=== PATIENT | male | born 1950 | race Caucasian/White ===

== ENCOUNTER 2018-02-05 08:04 | Outpatient (CLI) | payer OTHER ==
[2018-02-05 12:05] LABS: HGB - HEMOGLOBIN 14.9 g/dL (14.0-18.0); MEAN CORPUSCULAR HGB CONC 33.7 g/dL (32.0-36.0); MEAN CORPUSCULAR VOLUME 85.8 fL (80.0-94.0); MEAN PLATELET VOLUME 7.1 fL (7.4-11.4); RED BLOOD COUNT 5.16 10^6/uL (4.70-6.10); RED CELL DISTRIBUTION WIDTH 13.8 % (12.0-15.0); WHITE BLOOD COUNT 7.5 x10^3/uL (4.8-10.8)
[2018-02-05 12:07] LABS: ALBUMIN 4.2 g/dL (3.2-5.5); ALBUMIN/GLOBULIN RATIO 1.5 (1.0-2.2); ALKALINE PHOSPHATASE 58 IU/L (42-121); ALT ALANINE AMINOTRANSFERASE 33 IU/L (10-60); AST ASPARTATE AMINOTRANSFERASE 29 IU/L (10-42); BILIRUBIN,TOTAL 0.6 mg/dL (0.2-1.0); BUN - BLOOD UREA NITROGEN 20 mg/dL (6-20); CALCIUM 8.8 mg/dL (8.5-10.3); CARBON DIOXIDE - CO2 25 mmol/L (21-32); CHLORIDE 103 mmol/L (101-111); CHOL/HDL RATIO 5.3 (<5.0); CHOLESTEROL 184 mg/dL; CREATININE 1.1 mg/dL (0.6-1.2); GFR - MDRD 67 (>89); GLUCOSE 100 mg/dL (70-100); HDL CHOLESTEROL 35 mg/dL; LDL CHOLESTEROL,CALCULATED 117 mg/dL; LDL/HDL RATIO 3.3 (<3.6); SODIUM 137 mmol/L (135-145); VLDL CHOLESTEROL 32 mg/dL
[2018-02-06 14:52] LABS: HEPATITIS C ANTIBODY NON-REACTIVE (NON-REACTIVE)
== END 2018-02-05 08:05 | disposition home or self-care (01) ==
LOC: LAB.F 08:04
DX: I10 Essential (primary) hypertension (principal); E78.5 Hyperlipidemia, unspecified; Z11.59 Encounter for screening for other viral diseases
CPT/HCPCS: 36415; 80053; 80061; 83721; 85025; 86803

== ENCOUNTER 2021-02-18 13:41 | Outpatient (CLI) | payer OTHER ==
--- NOTE | 2021-02-18 14:18 | XRAY Report ---
PROCEDURE: Knee 3 View BILAT INDICATIONS: PAIN IN R KNEE, PAIN IN L KNEE TECHNIQUE: 3 views of the bilateral knee(s) were acquired. COMPARISON: None. FINDINGS: Bones: No fractures or dislocations. No suspicious bony lesions. Moderate bilateral medial femoral tibial compartment osteoarthritic changes are seen slightly worse. Mild bilateral patellofemoral com partment and lateral femoral tibial compartment osteoarthritic changes also seen. No patellar subluxa tion. Soft tissues: Moderate bilateral suprapatellar joint effusion is noted.. No suspicious soft tissue c alcifications. 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 Mild bilateral patellofemoral compartment and lateral femoral tibial compartment osteoarthritis. Reviewed by: Parker Borden MD on 02/18/2021 2:17 PM PDT Approved by: Parker Borden MD on 02/18/2021 2:17 PM PDT Station ID: [id number]
== END 2021-02-18 13:42 | disposition home or self-care (01) ==
LOC: DI 13:41
PROVIDERS: ATTEND Nurse Practitioner Family
DX: M25.561 Pain in right knee (principal); M25.562 Pain in left knee; M17.0 Bilateral primary osteoarthritis of knee

== ENCOUNTER 2023-01-25 15:59 | Outpatient (CLI) | payer OTHER | END 2023-01-25 23:59 | disposition short-term general hospital (02) | LOC: EMS 15:59 | DX: R47.81 Slurred speech (principal); R41.89 Other symptoms and signs involving cognitive functions and awareness | CPT/HCPCS: A0425; A0429 ==

== ENCOUNTER 2023-07-21 07:35 | Outpatient (CLI) | payer OTHER ==
[2023-07-21 07:48] LABS: BASOPHILS % (AUTO) 0.3 %; HGB - HEMOGLOBIN 13.9 g/dL (14.0-18.0); LYMPHOCYTES % (AUTO) 12.2 %; MEAN CORPUSCULAR HEMOGLOBIN 30.3 pg (27.0-31.0); MEAN CORPUSCULAR HGB CONC 33.9 g/dL (32.0-36.0); MEAN CORPUSCULAR VOLUME 89.5 fL (80.0-94.0); MEAN PLATELET VOLUME 8.3 fL (7.4-11.4); MONOCYTES % (AUTO) 9.9 %; PLT - PLATELET COUNT 139 10^3/uL (130-450); RED BLOOD COUNT 4.58 10^6/uL (4.70-6.10); RED CELL DISTRIBUTION WIDTH 15.7 % (12.0-15.0); WHITE BLOOD COUNT 9.7 x10^3/uL (4.8-10.8)
[2023-07-21 08:21] LABS: ABNORMAL LYMPHS % (MANUAL) 0 %
[2023-07-21 08:25] LABS: BAND NEUTROPHILS % (MANUAL) 4 %; DIFFERENTIAL COMMENT MANUAL DIFFERENTIAL; LYMPHOCYTES # (MANUAL) 1.2 10^3/uL (1.5-3.5); LYMPHOCYTES % (MANUAL) 5 %; METAMYELOCYTES % (MANUAL) 2 %; MONOCYTES # (MANUAL) 1.4 10^3/uL (0.0-1.0); MYELOCYTES % (MANUAL) 7 %; NEUTROPHILS # (MANUAL) 6.3 10^3/uL (1.5-6.6); NUCLEATED RBC (MANUAL) 1 %; REACTIVE LYMPHS % (MANUAL) 7 %
== END 2023-07-21 07:36 | disposition home or self-care (01) ==
LOC: LAB 07:35
PROVIDERS: ATTEND Internal Medicine Hematology & Oncology
DX: C71.9 Malignant neoplasm of brain, unspecified (principal)
CPT/HCPCS: 36415; 85025

== ENCOUNTER 2023-08-31 08:37 | Day surgery (SDC) | payer OTHER ==
[~2023-08-31 08:37] MED LIST: BUPIVACAINE 0.25% PF 30 ML VIAL ONE; LIDOCAINE 1%-EPI 1:100000 20 ML MDV ONE; PROPOFOL 500 MG/50 ML 0 MG/0 ML VIAL ONE; ceFAZolin 2 GM VIAL ONE
[2023-08-31] MEDS ORDERED: LACTATED RINGERS 1,000 ML IV ONE (08:55)
[2023-08-31 09:10] LABS: BASOPHILS % (AUTO) 1.1 %; EOSINOPHILS % (AUTO) 0.4 %; HCT - HEMATOCRIT 39.1 % (42.0-52.0); HGB - HEMOGLOBIN 13.7 g/dL (14.0-18.0); LYMPHOCYTES % (AUTO) 22.2 %; MEAN CORPUSCULAR HEMOGLOBIN 31.1 pg (27.0-31.0); MEAN CORPUSCULAR VOLUME 88.7 fL (80.0-94.0); MEAN PLATELET VOLUME 9.3 fL (7.4-11.4); MONOCYTES % (AUTO) 3.6 %; NEUTROPHILS % (AUTO) 66.2 %; PLT - PLATELET COUNT 46 10^3/uL (130-450); RED BLOOD COUNT 4.41 10^6/uL (4.70-6.10); RED CELL DISTRIBUTION WIDTH 17.7 % (12.0-15.0); WHITE BLOOD COUNT 2.8 x10^3/uL (4.8-10.8)
[2023-08-31 09:13] VITALS: BP 106/82; O2SAT 85
[2023-08-31 09:18] LABS: ABNORMAL LYMPHS % (MANUAL) 0 %
[2023-08-31 09:29] LABS: ALBUMIN 3.2 g/dL (3.2-5.5); BILIRUBIN,TOTAL 0.9 mg/dL (0.2-1.0); CALCIUM 8.6 mg/dL (8.5-10.3); CREATININE 0.7 mg/dL (0.6-1.3); POTASSIUM 3.8 mmol/L (3.5-4.5); TOTAL PROTEIN 6.4 g/dL (6.4-8.9)
[2023-08-31 10:18] LABS: BAND NEUTROPHILS % (MANUAL) 27 %; LYMPHOCYTES # (MANUAL) 0.6 10^3/uL (1.5-3.5); LYMPHOCYTES % (MANUAL) 13 %; METAMYELOCYTES % (MANUAL) 3 %; MONOCYTES # (MANUAL) 0.1 10^3/uL (0.0-1.0); MYELOCYTES % (MANUAL) 3 %; NUCLEATED RBC (MANUAL) 4 %; REACTIVE LYMPHS % (MANUAL) 7 %
[2023-08-31 10:23] LABS: DIFFERENTIAL COMMENT MANUAL DIFFERENTIAL
== END 2023-08-31 08:38 | disposition home or self-care (01) ==
LOC: SDS 08:37
PROVIDERS: ATTEND Surgery
DX: C71.9 Malignant neoplasm of brain, unspecified (principal); R53.1 Weakness; R00.0 Tachycardia, unspecified; Z53.09 Procedure and treatment not carried out because of other contraindication
CPT/HCPCS: 36415; 80053; 85025; 93005

== ENCOUNTER 2023-08-31 09:22 | Inpatient (IN) | payer OTHER ==
[2023-08-31] MEDS ORDERED: SODIUM CHLORIDE 0.9% 1,000 ML IV STA ×2 (09:48→12:11)
[2023-08-31 10:10] LABS: BASOPHILS % (AUTO) 0.4 %; EOSINOPHILS % (AUTO) 0.4 %; HCT - HEMATOCRIT 36.7 % (42.0-52.0); HGB - HEMOGLOBIN 12.9 g/dL (14.0-18.0); MEAN CORPUSCULAR HEMOGLOBIN 31.1 pg (27.0-31.0); MEAN CORPUSCULAR HGB CONC 35.1 g/dL (32.0-36.0); MEAN CORPUSCULAR VOLUME 88.4 fL (80.0-94.0); MEAN PLATELET VOLUME 8.9 fL (7.4-11.4); MONOCYTES % (AUTO) 4.1 %; NEUTROPHILS % (AUTO) 70.6 %; PLT - PLATELET COUNT 43 10^3/uL (130-450); RED BLOOD COUNT 4.15 10^6/uL (4.70-6.10); RED CELL DISTRIBUTION WIDTH 17.9 % (12.0-15.0); WHITE BLOOD COUNT 2.5 x10^3/uL (4.8-10.8)
--- NOTE | 2023-08-31 10:16 | XRAY Report ---
PROCEDURE: Chest 1 View X-Ray INDICATIONS: SOA/hypoxia/brain cancer TECHNIQUE: One view of the chest was acquired. COMPARISON: None. FINDINGS: Surgical changes and devices: None. Lungs and pleura: No pleural effusions or pneumothorax. Lungs are clear. Mediastinum: Mediastinal contours appear normal. Heart size is normal. Bones and chest wall: No suspicious bony lesions. Overlying soft tissues appear unremarkable. IMPRESSION: No acute cardiopulmonary process. Reviewed by: Avel Craven MD on 08/31/2023 10:15 AM PDT Approved by: Avel Craven MD on 08/31/2023 10:15 AM PDT Station ID: [id number]
[2023-08-31 10:23] LABS: ABNORMAL LYMPHS % (MANUAL) 0 %
[2023-08-31 10:27] LABS: BAND NEUTROPHILS % (MANUAL) 27 %; LYMPHOCYTES # (MANUAL) 0.5 10^3/uL (1.5-3.5); LYMPHOCYTES % (MANUAL) 13 %; METAMYELOCYTES % (MANUAL) 3 %; MONOCYTES # (MANUAL) 0.1 10^3/uL (0.0-1.0); MYELOCYTES % (MANUAL) 3 %; NEUTROPHILS # (MANUAL) 1.8 10^3/uL (1.5-6.6); NUCLEATED RBC (MANUAL) 4 %; REACTIVE LYMPHS % (MANUAL) 7 %
[2023-08-31 10:28] LABS: DIFFERENTIAL COMMENT MANUAL DIFFERENTIAL
[2023-08-31 10:30] LABS: BILIRUBIN,TOTAL 0.8 mg/dL (0.2-1.0); CALCIUM 8.4 mg/dL (8.5-10.3); CREATININE 0.7 mg/dL (0.6-1.3); INR 1.2 (0.8-1.2); POTASSIUM 3.6 mmol/L (3.5-4.5); PT - PROTHROMBIN TIME 13.4 secs (9.9-12.6)
[2023-08-31 11:25] LABS: B. PARAPERTUSSIS- RESP PCR PAN NOT DETECTED; B. PERTUSSIS- RESP PCR PANEL NOT DETECTED; C. PNEUMONIAE- RESP PCR PANEL NOT DETECTED; CORONAVIRUS 229E-RESP PCR NOT DETECTED; CORONAVIRUS HKU1-RESP PCR NOT DETECTED; CORONAVIRUS NL63-RESP PCR NOT DETECTED; CORONAVIRUS OC43-RESP PCR NOT DETECTED; HUMAN METAPNEUMOVIRUS NOT DETECTED; INFLUENZA A- RESP PCR PANEL NOT DETECTED; INFLUENZA B - RESP PCR PANEL NOT DETECTED; M. PNEUMONIAE- RESP PCR PANEL NOT DETECTED; PARAINFLUENZA VIRUS 1 NOT DETECTED; PARAINFLUENZA VIRUS 2 NOT DETECTED; PARAINFLUENZA VIRUS 3 NOT DETECTED; PARAINFLUENZA VIRUS 4 NOT DETECTED; RHINOVIRUS/ENTEROVIRUS NOT DETECTED; RSV- RESP PCR PANEL NOT DETECTED; SARS-CoV-2 -RESP PCR PANEL NOT DETECTED
[2023-08-31] MEDS ORDERED: iohexoL-300 100 ML VIAL IVP ONE (11:29)
--- NOTE | 2023-08-31 12:24 | ED Physician Documentation ---
History of Present Illness - Stated complaint Stated Complaint: WEAKNES - Chief complaint Chief Complaint: General - History obtained from History obtained from: Patient - Additonal information Additional information: Patient is a 73-year-old male with a history of glioblastoma presenting for evaluation of abnormal vital signs noticed in and when he arrived to the preop area he was noted to be tachycardic and hypoxic. Patient states that he has been feeling generalized weakness for the past 1 week. Denies fever, chest pain, shortness of air, cough off, vomit or diarrhea. He is currently on oral chemotherapy medications for treatment of his cancer and his oncologist is Dr. Herrera. Review of Systems Constitutional: denies: Fever Cardiac: denies: Chest pain / pressure Respiratory: denies: Dyspnea, Cough GI: denies: Abdominal Pain Neurologic: reports: Generalized weakness PD PAST MEDICAL HISTORY - Past Medical History Past Medical History: Yes Cardiovascular: High cholesterol - Past Surgical History Past Surgical History: Yes General: Hiatal hernia repair Neuro: Craniotomy - Present Medications Home Medications: Ambulatory Orders Medication Instructions Recorded Confirmed Ondansetron HCl 4 mg PO Q4HR PRN 04/10/23 08/31/23 Temozolomide 360 mg PO DAILY 08/07/23 08/31/23 Atorvastatin Calcium [Lipitor] 80 mg PO DAILY 08/28/23 08/31/23 Escitalopram [Lexapro] 10 mg PO DAILY 08/28/23 08/31/23 dexAMETHasone [Decadron] 4 mg PO BIDWM 08/28/23 08/31/23 - Allergies Allergies/Adverse Reactions: Allergies Allergy/AdvReac Type Severity Reaction Status Date / Time No Known Drug Allergies Allergy Verified 08/31/23 09:37 - Social History Does the pt smoke?: No Smoking Status: Never smoker Does the pt drink ETOH?: No Does the pt have substance abuse?: No - Immunizations Immunizations are current?: Yes PD ED PE NORMAL - General General: Alert and oriented X 3, No acute distress, Well developed/nourished - HEENT HEENT: Atraumatic - Neck Neck: Supple, no meningeal sign - Cardiac Cardiac: Strong equal pulses, Other (Tachycardic, regular rhythm) - Respiratory Respiratory: No respiratory distress, Clear bilaterally - Abdomen Abdomen: Soft, Non tender, Non distended - Derm Derm: Warm and dry - Extremities Extremities: No edema, No calf tenderness / cord - Neuro Neuro: Alert and oriented X 3, Normal speech Results - Vitals Vitals: Vital Signs - 24 hr 08/31/23 08/31/23 08/31/23 09:33 10:07 10:30 Temperature 37.6 C Heart Rate 139 H 115 H Respiratory 18 23 Rate Blood Pressure 106/80 99/80 110/88 H O2 Saturation 95 93 If not protocol 2 : Oxygen Flow, liters/minute 08/31/23 08/31/23 08/31/23 11:30 11:34 12:00 Temperature Heart Rate 107 H Respiratory 18 Rate Blood Pressure 97/71 O2 Saturation 89 L 94 93 If not protocol 2 2 : Oxygen Flow, liters/minute Oxygen O2 Source Nasal cannula Oxygen Flow Rate 2 - EKG (time done) 0910 EKG releavant findings:: EKG personally interpreted by author of this note. Relevant findings are: Rate 126, sinus tachycardia, right bundle branch block, no STEMI 1011 EKG releavant findings:: EKG personally interpreted by author of this note. Relevant findings are: Rate 122, sinus tachycardia, right bundle branch block, no STEMI - Labs Labs: Laboratory Tests 08/31/23 08/31/23 08/31/23 09:01 09:58 09:58 WBC 2.5 L RBC 4.15 L Hgb 12.9 L Hct 36.7 L MCV 88.4 MCH 31.1 H MCHC 35.1 RDW 17.9 H Plt Count 43 L MPV 8.9 Neut # (Auto) Not Reportable Lymph # (Auto) Not Reportable [place] # (Auto) Not Reportable Eos # (Auto) Not Reportable Baso # (Auto) Not Reportable Absolute Nucleated RBC Not Reportable Total Counted 100 Band Neuts % (Manual) 27 H Reactive Lymphs % (Man) 7 Abnorm Lymph % (Manual) 0 Metamyelocytes % 3 H Myelocytes % 3 H Nucleated RBC % Not Reportable Neutrophils # (Manual) 1.8 Lymphocytes # (Manual) 0.5 L Monocytes # (Manual) 0.1 Eosinophils # (Manual) 0.0 Basophils # (Manual) 0.0 Nucleated RBCs 4 Differential Comment MANUAL DIFFERENTIAL WBC Morphology 2+ DOHLE BODIES RBC Morph Micro Appear 1+ ANISOCYTOSIS PT 13.4 H INR 1.2 Sodium Potassium Chloride Carbon Dioxide Anion Gap BUN Creatinine Estimated GFR (MDRD) Glucose Lactic Acid Calcium Total Bilirubin AST ALT Alkaline Phosphatase Lactate Dehydrogenase 379 H Troponin I High Sens B-Natriuretic Peptide Total Protein Albumin Globulin Albumin/Globulin Ratio Lipase Nasal Adenovirus (PCR) Nasal B. parapertussis DNA (PCR) Nasal Coronavir 229E PCR Nasal Coronavir HKU1 PCR Nasal Coronavir NL63 PCR Nasal Coronavir OC43 PCR Nasal Enterovir/Rhinovir PCR Nasal Influenza B PCR Nasal Influenza A PCR Nasal Parainfluen 1 PCR Nasal Parainfluen 2 PCR Nasal Parainfluen 3 PCR Nasal Parainfluen 4 PCR Nasal RSV (PCR) Nasal B.pertussis DNA PCR Nasal C.pneumoniae (PCR) [place] Human Metapneumo PCR Nasal M.pneumoniae (PCR) Nasal SARS-CoV-2 (PCR) 08/31/23 08/31/23 08/31/23 09:58 09:58 09:58 WBC RBC Hgb Hct MCV MCH MCHC RDW Plt Count MPV Neut # (Auto) Lymph # (Auto) [place] # (Auto) Eos # (Auto) Baso # (Auto) Absolute Nucleated RBC Total Counted Band Neuts % (Manual) Reactive Lymphs % (Man) Abnorm Lymph % (Manual) Metamyelocytes % Myelocytes % Nucleated RBC % Neutrophils # (Manual) Lymphocytes # (Manual) Monocytes # (Manual) Eosinophils # (Manual) Basophils # (Manual) Nucleated RBCs Differential Comment WBC Morphology RBC Morph Micro Appear PT INR Sodium 138 Potassium 3.6 Chloride 102 Carbon Dioxide 24 Anion Gap 12.0 BUN 28 H Creatinine 0.7 Estimated GFR (MDRD) 111 Glucose 169 H Lactic Acid Calcium 8.4 L Total Bilirubin 0.8 AST 37 ALT 68 H Alkaline Phosphatase 106 Lactate Dehydrogenase Troponin I High Sens 28.7 H* B-Natriuretic Peptide 100 Total Protein 6.0 L Albumin 3.0 L Globulin 3.0 Albumin/Globulin Ratio 1.0 Lipase 53 Nasal Adenovirus (PCR) Nasal B. parapertussis DNA (PCR) Nasal Coronavir 229E PCR Nasal Coronavir HKU1 PCR Nasal Coronavir NL63 PCR Nasal Coronavir OC43 PCR Nasal Enterovir/Rhinovir PCR Nasal Influenza B PCR Nasal Influenza A PCR Nasal Parainfluen 1 PCR Nasal Parainfluen 2 PCR Nasal Parainfluen 3 PCR Nasal Parainfluen 4 PCR Nasal RSV (PCR) Nasal B.pertussis DNA PCR Nasal C.pneumoniae (PCR) [place] Human Metapneumo PCR Nasal M.pneumoniae (PCR) Nasal SARS-CoV-2 (PCR) 08/31/23 08/31/23 09:58 10:08 WBC RBC Hgb Hct MCV MCH MCHC RDW Plt Count MPV Neut # (Auto) Lymph # (Auto) [place] # (Auto) Eos # (Auto) Baso # (Auto) Absolute Nucleated RBC Total Counted Band Neuts % (Manual) Reactive Lymphs % (Man) Abnorm Lymph % (Manual) Metamyelocytes % Myelocytes % Nucleated RBC % Neutrophils # (Manual) Lymphocytes # (Manual) Monocytes # (Manual) Eosinophils # (Manual) Basophils # (Manual) Nucleated RBCs Differential Comment WBC Morphology RBC Morph Micro Appear PT INR Sodium Potassium Chloride Carbon Dioxide Anion Gap BUN Creatinine Estimated GFR (MDRD) Glucose Lactic Acid 2.8 H Calcium Total Bilirubin AST ALT Alkaline Phosphatase Lactate Dehydrogenase Troponin I High Sens B-Natriuretic Peptide Total Protein Albumin Globulin Albumin/Globulin Ratio Lipase Nasal Adenovirus (PCR) NOT DETECTED Nasal B. parapertussis DNA (PCR) NOT DETECTED Nasal Coronavir 229E PCR NOT DETECTED Nasal Coronavir HKU1 PCR NOT DETECTED Nasal Coronavir NL63 PCR NOT DETECTED Nasal Coronavir OC43 PCR NOT DETECTED Nasal Enterovir/Rhinovir PCR NOT DETECTED Nasal Influenza B PCR NOT DETECTED Nasal Influenza A PCR NOT DETECTED Nasal Parainfluen 1 PCR NOT DETECTED Nasal Parainfluen 2 PCR NOT DETECTED Nasal Parainfluen 3 PCR NOT DETECTED Nasal Parainfluen 4 PCR NOT DETECTED Nasal RSV (PCR) NOT DETECTED Nasal B.pertussis DNA PCR NOT DETECTED Nasal C.pneumoniae (PCR) NOT DETECTED [place] Human Metapneumo PCR NOT DETECTED Nasal M.pneumoniae (PCR) NOT DETECTED Nasal SARS-CoV-2 (PCR) NOT DETECTED PD Medical Decision Making - ED course Complexity details: reviewed results, re-evaluated patient, d/w patient, d/w family ED course: Patient is a 73-year-old male with a history of glioblastoma presenting for evaluation of tachycardia and hypoxia noted at outpatient surgery this morning where he was scheduled to get a port placed. Patient reports generalized weakness for the past 1 week but otherwise denies chest pain, shortness of air, URI symptoms. Nonfocal neuro exam. He is tachycardic and hypoxic on room air. He EKG demonstrates sinus tachycardia. CBC, chemistries, chest x-ray and respiratory swab were initially ordered and reviewed. Patient was also given IV fluids. Lactic is elevated at 2.8. Patient is pancytopenic. High sensitive troponin is mildly elevated at 16 which I suspect is likely related to demand from tachycardia and hypoxia. No chest pain to suggest this is ACS. No pneumonia or consolidation seen on chest x-rays so a CT angio was obtained to evaluate further causes of his symptoms. It is negative for pulmonary embolism.There is a right upper lobe consolidation as well as centrilobular nodules suggestive of bronchiolitis. Suspect infectious etiology and will start patient on IV antibiotics. Reviewed CT results with patient. Presented the case to the admitting hospitalist who will admit for further management. 1230 - Discussed with admitting hospitalist, Dr. Joe. IMPRESSION: Evaluation is mildly limited secondary to respiratory motion artifact, notably in the bilateral lower lobes. 1. No pulmonary embolism to the level of the proximal subsegmental pulmonary arteries, accounting for motion. 2. Right upper lobe nodular consolidation measuring 1.7 x 1.1 cm containing punctate foci of air. Differential includes infection/abscess versus malignancy. Consider short interval follow-up in 6 weeks. 3. Centrilobular nodules in the right upper lobe suggestive of bronchiolitis of infectious or inflammatory etiology. 4. Hypoattenuating lesion in the left hepatic lobe measuring 1.1 cm is indeterminate. A CT or MRI (liver mass protocol) can be performed for further evaluation, clinical di scretion. Departure - Departure Disposition: 66 [facility] DC/Xfer Clinical Impression: Acute hypoxic respiratory failure, CAP (community acquired pneumonia), Immunocompromised, Pancytopenia Condition: Fair Discharge Date/Time: 08/31/23 14:00
--- NOTE | 2023-08-31 12:33 | CT Report ---
PROCEDURE: ANGIO CHEST W/WO INDICATIONS: SOA/hypoxic/brain cancer CONTRAST: 80ml Omni 300 TECHNIQUE: After the administration of intravenous contrast, 2 mm axial images were acquired from the pulmonary apices to the posterior costophrenic angles during the arterial phase. In addition, 1 mm lung kernel and 5 mm soft tissue kernel reconstructions were performed. 3-dimensional coronal oblique maximum int ensity projection (MIP) reformats, 8 mm axial MIP, and 5 mm coronal and sagittal MPR reformats were t hen performed through the thorax. For radiation dose reduction, the following was used: automated exp osure control, adjustment of mA and/or kV according to patient size. COMPARISON: Chest radiograph on August 31, 2023 FINDINGS: Image quality: Adequate. Good enhancement of the pulmonary artery. Evaluation is limited secondary to respiratory motion artifact, notably in the bilateral lower lobes. Large vessels: No filling defects within the opacified pulmonary arteries to the level of the proxima l subsegmental pulmonary arteries, accounting for motion and contrast timing. No evidence of acute ao rtic syndrome or aortic aneurysm. Mild calcification of the thoracic aorta. Ascending aorta measures 3.5 cm. Main pulmonary artery is normal in caliber. Lungs and pleura: Right upper lobe nodular consolidation measuring 1.7 x 1.1 cm containing punctate f oci of air (4/122-131). Centrilobular nodules in the right upper lobe (4/101-1:15, 148). Subcentimete r calcified granuloma in the middle lobe. Dependent atelectasis. Moderate apical predominant centrilo bular paraseptal edema. No pleural effusions. No pneumothorax. Mediastinum: Heart size is normal. No pericardial effusion. No mediastinal adenopathy by size criteri a. Chest wall and lower neck: Thyroid is unremarkable. No axillary or supraclavicular adenopathy by size . Bones: No aggressive osseous abnormality. No acute fracture. Mild multilevel degenerative changes of the spine. Upper Abdomen: Hypoattenuating lesion in the left hepatic lobe measuring 1.1 cm is indeterminate (01/18 30). Additional subcentimeter lesion in the right hepatic lobe measuring 0.5 cm is too small to oralia cterize (re-/1:30). Calcified granulomas in the spleen. Simple cysts in the right upper pole.. IMPRESSION: Evaluation is mildly limited secondary to respiratory motion artifact, notably in the bilateral lower lobes. 1. No pulmonary embolism to the level of the proximal subsegmental pulmonary arteries, accounting for motion. 2. Right upper lobe nodular consolidation measuring 1.7 x 1.1 cm containing punctate foci of air. Dif ferential includes infection/abscess versus malignancy. Consider short interval follow-up in 6 weeks. 3. Centrilobular nodules in the right upper lobe suggestive of bronchiolitis of infectious or inflamm atory etiology. 4. Hypoattenuating lesion in the left hepatic lobe measuring 1.1 cm is indeterminate. A CT or MRI ( kassidy mass protocol) can be performed for further evaluation, clinical discretion. Reviewed by: Manuel Hale MD on 08/31/2023 12:32 PM PDT Approved by: Manuel Hale MD on 08/31/2023 12:32 PM PDT Station ID: [id number]
[2023-08-31] MEDS ORDERED: AZITHROMYCIN INJ 500 MG in SODIUM CHLORIDE 0.9% 250 ML IV STA (12:37)
[2023-08-31] MEDS ORDERED: cefTRIAXone 1 GM in SODIUM CHLORIDE 0.9% MINIBAG 100 ML IV STA (12:37)
[2023-08-31] MEDS ORDERED: ONDANSETRON ODT 4 MG TABLET TL PRN (12:52)
[2023-08-31] MEDS ORDERED: SODIUM CHLORIDE FLUSH 0.9% 10 ML SYRINGE IVP PRN (12:52)
[2023-08-31] MEDS ORDERED: ACETAMINOPHEN 325 MG TABLET PO PRN (12:52)
[2023-08-31] MEDS ORDERED: oxyCODONE 5 MG TABLET PO PRN (12:52)
[2023-08-31] MEDS ORDERED: ONDANSETRON 4 MG/2 ML VIAL IVP PRN (12:52)
[2023-08-31] MEDS ORDERED: SODIUM CHLORIDE 0.9% 1,000 ML IV SCH (13:00)
--- NOTE | 2023-08-31 13:41 | PHARMACY PROGRESS NOTE ---
- Best Possible Medication History Admit Date and Time: 08/31/23 1252 Processed by: Nursing As the person ultimately responsible for medication therapy, providers are able to order a medication from an existing home medication list in [facility] via the "Reconcile Routine" prior to Confirmation of that medication by decision support manager. Such practice is discouraged except when the physician, in their clinical judgment, deems that a medical need exists for a medication without regard to previous use.
[2023-08-31] MEDS: ENOXAPARIN 40 MG/0.4 ML SYRINGE SUBQ SCH (13:57)
[2023-08-31] MEDS ORDERED: VANCOMYCIN INJ 1 GM in SODIUM CHLORIDE 0.9% 250 ML IV SCH (14:00)
--- NOTE | 2023-08-31 15:59 | HISTORY & PHYSICAL EXAMINATION ---
Chief Complaint - Chief Complaint Chief Complaint: Pneumonia History of Present Illness - Admitted From Admitted From:: ED - History Obtained From Records Reviewed: EMR History obtained from: Patient Exam Limitations: None - History of Present Illness HPI Comment/Other: Patient is a 73-year-old male with a history of glioblastoma that he was diagnosed with in January 2023 presenting for evaluation of abnormal vital signs n oticed when he arrived to the preop area he was noted to be tachycardic and hypoxic. Patient states that he has been feeling generalized weakness for the past 1 week. Denies fever, chest pain, shortness of air, cough off, vomit or diarrhea. He is currently on oral chemotherapy medications for treatment of his cancer and his oncologist is Dr. Bhavesh Holm. History - Past Medical History Cardiovascular: reports: High cholesterol Respiratory: reports: None Neuro: reports: None Endocrine/Autoimmune: reports: None GI: reports: None CRYOGENICS REPAIRER: reports: None : reports: None HEENT: reports: None Psych: reports: None Musculoskeletal: reports: None Derm: reports: None Other Past Medical History: Pt has a Glioblastoma that he was diagnosed with in January of 2023. When asked about any other past medical history he states that he "can not remember anything" - Past Surgical History General: reports: Hiatal hernia repair Neuro: reports: Craniotomy - Family & Social History Family History: Mother: , Cancer (Mom from cervical cancer and Dad from Brain cancer he thinks), Father: , Cancer Living arrangement: At home Living Situation: With family Social History Notes: He currently lives at home with his and Daughter who has downs syndrome - Substance History Use: Uses substance without health or social issues: Tobacco (Use to smoke a pack a day starting at the age of 20, he would quit and then start again before finally quitting for good at the age of 50. ), Alcohol (Use to drink but quit around the same time that he quit smoking ) - POLST Patient has POLST: Yes POLST Status: DNR Meds/Allgy - Home Medications Home Medications: Ambulatory Orders Medication Instructions Recorded Confirmed Ondansetron HCl 4 mg PO Q4HR PRN 04/10/23 08/31/23 Temozolomide 360 mg PO DAILY 08/07/23 08/31/23 Atorvastatin Calcium [Lipitor] 80 mg PO DAILY 08/28/23 08/31/23 Escitalopram [Lexapro] 10 mg PO DAILY 08/28/23 08/31/23 dexAMETHasone [Decadron] 4 mg PO BIDWM 08/28/23 08/31/23 - Allergies Allergies/Adverse Reactions: Allergies Allergy/AdvReac Type Severity Reaction Status Date / Time No Known Drug Allergies Allergy Verified 08/31/23 09:37 Review of Systems - Constitutional Constitutional: reports: Fatigue, Weakness. denies: Fever, Chills - Eyes Eyes: denies: Blurred vision, Vision loss - Ears, Nose & Throat Ears, Nose & Throat: denies: Hearing loss, Vertigo, Sore throat - Cardiovascular Cariovascular: denies: Irregular heart rate, Palpitations, Chest pain - Respiratory Respiratory: denies: Cough, SOB at rest, SOB with exertion - Gastrointestinal Gastrointestinal: denies: Abdominal pain, Constipation, Diarrhea, Change in bowel habits - Genitourinary Genitourinary: denies: Dysuria, Frequency, Urgency - Musculoskeletal Musculoskeletal: denies: Muscle pain, Back pain - Integumentary Integumentary: denies: Rash, Dryness - Neurological Neurological: reports: General weakness. denies: Headache, Dizziness - Psychiatric Psychiatric: denies: Suicidal, Homicidal - Endocrine Endocrine: denies: Polyuria, Polydypsia - Hematologic/Lymphatic Hematologic/Lymphatic: denies: Bruising Prior Level of Functionality: Pt is able to dress, bath, cook and eat food on his own. He has noticed that he has some difficulty walking lately due to increasing weakness. He currently lives with his and daughter who has down syndrome. Exam - Vital Signs Reviewed Vital Signs: Yes Vital Signs: Vital Signs x48h Temp Pulse Pulse Resp BP BP Pulse Ox 08/31/23 15:45 08/31/23 13:57 36.3 C L 87 18 129/73 96 08/31/23 13:00 37.4 C 100 22 115/90 H 92 08/31/23 12:00 107 H 18 97/71 93 08/31/23 11:34 94 08/31/23 11:30 89 L 08/31/23 10:30 110/88 H 08/31/23 10:07 115 H 23 99/80 93 08/31/23 09:33 37.6 C 139 H 18 106/80 95 O2 Flow Rate 08/31/23 15:45 4 08/31/23 13:57 4 08/31/23 13:00 2 08/31/23 12:00 2 08/31/23 11:34 2 08/31/23 11:30 08/31/23 10:30 08/31/23 10:07 2 08/31/23 09:33 - Physical Exam General Appearance: positive: No acute distress, Lethargic Eyes Bilateral: positive: PERRL, EOMI ENT: positive: ENT inspection nml Neck: positive: Nml inspection Respiratory: positive: Chest non-tender, No respiratory distress, Breath sounds nml Cardiovascular: positive: Regular rate & rhythm Peripheral Pulses: positive: 2+ (Both radial and Pedial) Abdomen: positive: Nml bowel sounds, Tenderness (Tender to palpation in the LLQ) Skin: positive: Color nml, No rash, Dry, Other (Pt skin is a little cold, he is currently laying in a cold room under some blankets.) Extremities: positive: Non-tender, No pedal edema Neurologic/Psychiatric: positive: Oriented x3, Other (Slow speech and forgetful about certain things) Sepsis Event Note (H) - Evaluation Current Stage of Sepsis: Ruled out Conclusion/Plan - Problem List (1) Pneumonia Conclusion/Plan: Pt came in to the ED from preop when he was about to get a port put in for chemo for his Glioblastoma treatment when he had abnormal vitals consistent of tachycardia and hypoxic. He got an X-ray which came back with no acute findings, see report for full details, and he got a CT of the chest which shows no PE, but a right upper lobe nodular consolidation measuring 1.7 x 1.1 cm containing punctate fuci of air. Differential includes infection/abscess versus malignancy, centrilobular nodules in the right upper lobe suggestive of bronchiolitis of infectious or inflammatory etiology. See CT report for full review. Due to the patients current diagnosis of a Glioblastoma he is taking Avastin and Temozolomide and going through chemoradiation causeing him to be immunocompromized. As such this finding on the CT could be a verity of different Pneumonias, one of which could be Pneumocystis jirovecii pneumonia (PCP) due to him taking Temozolomide making him more susceptible to it. An infectious disease doctor was consulted on what kind of work up should happen to more specifically direct treatment. The goal for this patient is to find out what pneumonia he has so that it can be directly treated. Plan: Wait for lab work to return so as to better direct antibiotic treatment Start Azithromycin 500 mg Start Cefepime 1 gm Vancomycin HCl 500 mg (2) Glioblastoma Conclusion/Plan: Pt was diagnosed with Glioblastoma January of 2023, he has had surgical resection for it, and is currently taking Avastin and Temozolomide along with chemoradiation. Pt states that his current oncologist is Dr. Bhavesh Holm, his doctor will be contacted and informed about his Mr. Carrero current hospitalization. Plan: Continue to monitor patient and make sure he is comfortable. (3) Pancytopenia Conclusion/Plan: Pt had blood work come back with WBC count of 2.5, RBC count of 4.15 and Platelet count of 43. This is due to the treatment he is receiving for his Glioblastoma. Plan: Monitor patient. - Lab Results Fish Bones: 08/31/23 09:58 08/31/23 09:58 Core Measures - Anticipated LOS I expect patient to be DC'd or transferred within 96 hours.: Yes - DVT/VTE - Prophylaxis VTE/DVT Device ordered at admit?: Yes VTE/DVT Prophylaxis med ordered at admit?: Yes
[2023-08-31] MEDS: CEFEPIME 1 GM in SODIUM CHLORIDE 0.9% MINIBAG 100 ML IV SCH ×2 (16:13→22:29)
[2023-08-31] MEDS: SODIUM CHLORIDE FLUSH 0.9% 10 ML SYRINGE IVP SCH (16:13)
[2023-08-31] MEDS: VANCOMYCIN INJ 1 GM, VANCOMYCIN INJ 500 MG in SODIUM CHLORIDE 0.9% 500 ML IV SCH (16:50)
--- NOTE | 2023-08-31 18:03 | ADVANCE CARE PLANNING NOTE ---
Advance Care Planning - Planning Encounter Date: 08/31/23 Time: 17:51 Purpose: Established CODE STATUS and care goals in the context of a terminal illness Parties in Attendance: Hospitalist, patient, and [facility] [employer] student Xavi Cline Decisional Capacity of the Patient: Fatigued but alert, oriented to person, place, time, situation - Encounter Subjective/Patient's Story: He is a 73-year-old male whose main past medical history was that of hypertension and hyperlipidemia until he was diagnosed with a glioblastoma multiforme in January of this year. He lives in his own home with his in [place]. They have 1 child together, a 37-year-old female who has Down syndrome and she lives with them. Very simply, he states that the main praful in his life is golfing and his family. He and his have already made arrangements regarding what will happen to his daughter if both he and his are . When I ask him if he has any thoughts about end-of-life care considering he has glioblastoma with progression of disease in spite of treatment, he states that he really has not thought about it because no one has asked him. He already has made some decisions about a. But has not shared with his providers. First and foremost he states he wishes to be a DO NOT RESUSCITATE. If he has no pulse or breath, DO NOT RESUSCITATE him. No intubation, no CPR. However, he still wants everything done with regards to IV antibiotics, blood transfusions, transfer to the ICU for pressor agents if needed to keep him alive. The only time he does not wish all of that done is if he cannot golf. I had asked him what would be the 1 thing in life that he cannot give up. What quality of life indicator would he use to guide himself to decide if it was time to stop treatment. He replied that it would be golf. And he means it. He is not joking or trying to make light of my question. He is still able to feed himself, dress himself. Drive a car. Still independent within his home and the help of his when he gets tired and fatigued. Still able to "play a lot of golf." Objective/Medical Story: 73-year-old white male with a history of hypertension and hyperlipidemia that had a seizure and slurred speech with strokelike symptoms in January 2023. He was taken by ambulance from his home to [facility] where he was diagnosed with a brain mass. Subsequent treatment consisted of surgical resection and concurrent chemoradiation with daily temozolomide. A follow-up MRI in March 2023 revealed enlargement of a residual left temporal lobe lesion with extensive edema and swelling and 10 mm [id number] midline shift. He was deemed a candidate for an awake craniotomy but given his low score on a work test he declined the procedure. He has subsequently started temozolomide and Avastin every 2 weeks as of August 04. The patient knows that he has a median overall survival that is going to be measured in months. This treatment is considered palliative. The side effects and the risk of this treatment have been gone over with him extensively. He has been told that the value of reirradiation of high-grade gliomas is uncertain and there is no standard of care for systemic therapy in the setting. In addition to the Avastin and the temozolomide he is on dexamethasone 4 mg twice daily. So far his functional capacity has remained robust. While he has some memory loss, word finding skills, he is still able to feed himself, dress himself. He is not having any pain. ECOG is 1. He does not have any headaches, blurred vision. He is not having any balance issues and has not had any falls. He does not have any problems with urination. He tells me that his advocate and POA/DPOA would be his . If he cannot speak for himself she is to speak for him. Goals of Care: As simply stated by him, as long as he can play golf, he wants to keep ongoing with treatment options. If he is bedbound, no longer able to leave his home to play golf, he would strongly consider hospice care. Plan: At this time there are no changes to symptom management that I can offer him. He is relatively symptom-free other than reactions to his medications. But he does not have a lot of nausea, or pain. He will complete his therapy for pneumonia and anticipation is he will return home I will fill out a POLST form and have a copy placed in her EMR and he can go home with that I will ask him to see if he can get that paperwork ready to make sure that his is recognizes his POA and DPOA Code Status: Do Not Attempt Resuscitation Time spent on advance care plannin minutes
[2023-09-01] MEDS: SODIUM CHLORIDE FLUSH 0.9% 10 ML SYRINGE IVP SCH ×4 (02:13→23:59)
[2023-09-01] MEDS: VANCOMYCIN INJ 1 GM, VANCOMYCIN INJ 500 MG in SODIUM CHLORIDE 0.9% 500 ML IV SCH (02:13)
[2023-09-01 05:34] LABS: BASOPHILS % (AUTO) 0.7 %; EOSINOPHILS % (AUTO) 0.7 %; HCT - HEMATOCRIT 29.6 % (42.0-52.0); LYMPHOCYTES % (AUTO) 14.6 %; MEAN CORPUSCULAR HEMOGLOBIN 31.1 pg (27.0-31.0); MEAN CORPUSCULAR HGB CONC 33.8 g/dL (32.0-36.0); MEAN CORPUSCULAR VOLUME 91.9 fL (80.0-94.0); MEAN PLATELET VOLUME 10.3 fL (7.4-11.4); MONOCYTES % (AUTO) 2.6 %; NEUTROPHILS % (AUTO) 76.1 %; PLT - PLATELET COUNT 37 10^3/uL (130-450); RED BLOOD COUNT 3.22 10^6/uL (4.70-6.10); RED CELL DISTRIBUTION WIDTH 18.2 % (12.0-15.0)
[2023-09-01 05:58] LABS: CALCIUM 7.5 mg/dL (8.5-10.3); CREATININE 0.5 mg/dL (0.6-1.3); POTASSIUM 2.9 mmol/L (3.5-4.5)
[2023-09-01 06:06] LABS: WHITE BLOOD COUNT 1.5 x10^3/uL (4.8-10.8)
[2023-09-01 06:08] LABS: ABNORMAL LYMPHS % (MANUAL) 0 %
[2023-09-01 06:38] LABS: BAND NEUTROPHILS % (MANUAL) 2 %; LYMPHOCYTES # (MANUAL) 0.4 10^3/uL (1.5-3.5); LYMPHOCYTES % (MANUAL) 28 %; MONOCYTES # (MANUAL) 0.2 10^3/uL (0.0-1.0); NEUTROPHILS # (MANUAL) 0.9 10^3/uL (1.5-6.6)
[2023-09-01 06:39] LABS: RBC MORPHOLOGY (MULTIPLE) NORMAL APPEARANCE (NORMAL)
[2023-09-01 06:40] LABS: DIFFERENTIAL COMMENT MANUAL DIFFERENTIAL; PLATELET ESTIMATE, MANUAL DECREASED (<130,000) (NORMAL)
[2023-09-01] MEDS: CEFEPIME 1 GM in SODIUM CHLORIDE 0.9% MINIBAG 100 ML IV SCH ×3 (06:55→20:57)
[2023-09-01] MEDS: dexAMETHasone 4 MG TABLET PO SCH ×2 (08:24→17:01)
[2023-09-01] MEDS: ESCITALOPRAM 10 MG TABLET PO SCH (08:24)
[2023-09-01] MEDS: AZITHROMYCIN INJ 500 MG in SODIUM CHLORIDE 0.9% 250 ML IV SCH (08:25)
[2023-09-01] MEDS: ENOXAPARIN 40 MG/0.4 ML SYRINGE SUBQ SCH (08:25)
--- NOTE | 2023-09-01 09:06 | PROVIDER PROGRESS NOTE ---
Subjective - Prog Note Date Prog Note Date: 09/01/23 Prog Note Time: 09:04 - Subjective Pt reports feeling: Improved Subjective: 73 Y.O M here for pneumonia after having generalized fatigue for 1 week. Today he says he is feeling better and has no additional complaints. Denies any fever, chills, nausea, vomiting, SOB, difficulty breathing, chest pain. Current Medications - Current Medications Current Medications: Active Medications Acetaminophen (Acetaminophen 325 Mg Tablet) 650 mg PO Q4HR PRN PRN Reason: Pain 1 to 4, or Fever Dexamethasone (Dexamethasone 4 Mg Tablet) 4 mg PO BIDWM [facility] Last Admin: 09/01/23 08:24 Dose: 4 mg Enoxaparin Sodium (Enoxaparin 40 Mg/0.4 Ml Syringe) 40 mg SUBQ DAILY [facility] Last Admin: 09/01/23 08:25 Dose: 40 mg Escitalopram Oxalate (Escitalopram 10 Mg Tablet) 10 mg PO DAILY [facility] Last Admin: 09/01/23 08:24 Dose: 10 mg Cefepime HCl 1 gm/ Sodium (Chloride) 100 mls @ 200 mls/hr IV TID [facility] Last Infusion: 09/01/23 07:55 Dose: Infused Azithromycin 500 mg/ Sodium (Chloride) 250 mls @ 250 mls/hr IV DAILY [facility] Stop: 09/02/23 09:59 Last Admin: 09/01/23 08:25 Dose: 250 mls/hr Vancomycin HCl 1 gm/Vancomycin HCl 500 mg/ Sodium Chloride 500 mls @ 250 mls/hr IV Q12H [facility] Last Infusion: 09/01/23 04:15 Dose: Infused Ondansetron HCl (Ondansetron Odt 4 Mg Tablet) 4 mg TL Q6HR PRN PRN Reason: Nausea / Vomiting Ondansetron HCl (Ondansetron 4 Mg/2 Ml Vial) 4 mg IVP Q6HR PRN PRN Reason: Nausea / Vomiting Oxycodone HCl (Oxycodone 5 Mg Tablet) 5 mg PO Q4HR PRN PRN Reason: Pain 5 to 7 Sodium Chloride (Sodium Chloride Flush 0.9% 10 Ml Syringe) 10 ml IVP PRN PRN PRN Reason: NEEDED PER PROVIDER ORDERS Sodium Chloride (Sodium Chloride Flush 0.9% 10 Ml Syringe) 10 ml IVP 010 0,0900,1700 [facility] Last Admin: 09/01/23 08:25 Dose: 10 ml Ondansetron HCl 4 mg PO Q4HR PRN 04/10/23 Temozolomide 360 mg PO DAILY 08/07/23 Atorvastatin Calcium [Lipitor] 80 mg PO DAILY 08/28/23 Escitalopram [Lexapro] 10 mg PO DAILY 08/28/23 dexAMETHasone [Decadron] 4 mg PO BIDWM 08/28/23 Objective - Vital Signs/Intake & Output Reviewed Vital Signs: Yes Vital Signs: Vital Signs x48h Temp Pulse Resp BP Pulse Ox O2 Flow Rate 09/01/23 07:56 2 09/01/23 07:37 36.6 C 114 H 22 109/66 94 5 09/01/23 04:30 37.7 C 116 H 24 115/66 93 5 Intake & Output: Intake & Output 08/29/23 08/30/23 08/31/23 09/01/23 23:59 23:59 23:59 23:59 Intake Total 3278.333 2066.667 Output Total 275 1050 Balance 3003.333 1016.667 - Objective General Appearance: positive: No acute distress, Alert Eyes Bilateral: positive: Normal inspection ENT: positive: ENT inspection nml Neck: positive: Nml inspection Respiratory: positive: No respiratory distress, Breath sounds nml Cardiovascular: positive: Regular rate & rhythm Peripheral Pulses: 2+ Radial (R), 2+ Radial (L) Abdomen: positive: Non-tender, No distention, Abnml bowel sounds (Hyperactive) Skin: positive: Color nml, No rash, Warm, Dry Neurologic/Psychiatric: positive: Oriented x3 - Lab Results Fish Bones: 09/01/23 05:10 09/01/23 05:10 Other Labs: Lab Results x24hrs 09/01/23 09/01/23 08/31/23 Range/Units 05:10 05:10 10:08 WBC 1.5 L* (4.8-10.8) x10^3/uL RBC 3.22 L (4.70-6.10) 10^6/uL Hgb 10.0 L (14.0-18.0) g/dL Hct 29.6 L (42.0-52.0) % MCV 91.9 (80.0-94.0) fL MCH 31.1 H (27.0-31.0) pg MCHC 33.8 (32.0-36.0) g/dL RDW 18.2 H (12.0-15.0) % Plt Count 37 L (130-450) 10^3/uL MPV 10.3 (7.4-11.4) fL Neut # (Auto) Not Reportable Lymph # (Auto) Not Reportable Ellis # (Auto) Not Reportable Eos # (Auto) Not Reportable Baso # (Auto) Not Reportable Absolute Nucleated RBC Not Reportable Total Counted 50 Band Neuts % (Manual) 2 (0 - 10) % Reactive Lymphs % (Man) % Abnorm Lymph % (Manual) 0 % Metamyelocytes % ( - 0) % Myelocytes % ( - 0) % Nucleated RBC % Not Reportable Neutrophils # (Manual) 0.9 L (1.5-6.6) 10^3/uL Lymphocytes # (Manual) 0.4 L (1.5-3.5) 10^3/uL Monocytes # (Manual) 0.2 (0.0-1.0) 10^3/uL Eosinophils # (Manual) 0.0 (0-0.7) 10^3/uL Basophils # (Manual) 0.0 (0-0.1) 10^3/uL Nucleated RBCs % Differential Comment MANUAL DIFFERENTIAL WBC Morphology (NORMAL) Platelet Estimate DECREASED (<130,000) (NORMAL) RBC Morph Micro Appear NORMAL APPEARANCE (NORMAL) PT (9.9-12.6) secs INR (0.8-1.2) Sodium 138 (135-145) mmol/L Potassium 2.9 L (3.5-4.5) mmol/L Chloride 106 (101-111) mmol/L Carbon Dioxide 22 (21-32) mmol/L Anion Gap 10.0 (6-13) BUN 12 (6-20) mg/dL Creatinine 0.5 L (0.6-1.3) mg/dL Estimated GFR (MDRD) 163 (>89) Glucose 109 H (74-104) mg/dL Lactic Acid (0.5-2.2) mmol/L Calcium 7.5 L (8.5-10.3) mg/dL Total Bilirubin (0.2-1.0) mg/dL AST (10-42) IU/L ALT (10-60) IU/L Alkaline Phosphatase (42-121) IU/L Lactate Dehydrogenase (140-271) IU/L Troponin I High Sens (2.3-19.7) ng/L B-Natriuretic Peptide (5-100) pg/mL Total Protein (6.4-8.9) g/dL Albumin (3.2-5.5) g/dL Globulin (2.1-4.2) g/dL Albumin/Globulin Ratio (1.0-2.2) Lipase (11-82) U/L Nasal Adenovirus (PCR) NOT DETECTED Nasal B. parapertussis DNA (PCR) NOT DETECTED Nasal Coronavir 229E PCR NOT DETECTED Nasal Coronavir HKU1 PCR NOT DETECTED Nasal Coronavir NL63 PCR NOT DETECTED Nasal Coronavir OC43 PCR NOT DETECTED Nasal Enterovir/Rhinovir PCR NOT DETECTED Nasal Influenza B PCR NOT DETECTED Nasal Influenza A PCR NOT DETECTED Nasal Parainfluen 1 PCR NOT DETECTED Nasal Parainfluen 2 PCR NOT DETECTED Nasal Parainfluen 3 PCR NOT DETECTED Nasal Parainfluen 4 PCR NOT DETECTED Nasal RSV (PCR) NOT DETECTED Nasal B.pertussis DNA PCR NOT DETECTED Nasal C.pneumoniae (PCR) NOT DETECTED [place] Human Metapneumo PCR NOT DETECTED Nasal M.pneumoniae (PCR) NOT DETECTED Nasal SARS-CoV-2 (PCR) NOT DETECTED Anti-Streptolysin O Ab (0.0-200.0) IU/mL 08/31/23 08/31/23 08/31/23 Range/Units 09:58 09:58 09:58 WBC (4.8-10.8) x10^3/uL RBC (4.70-6.10) 10^6/uL Hgb (14.0-18.0) g/dL Hct (42.0-52.0) % MCV (80.0-94.0) fL MCH (27.0-31.0) pg MCHC (32.0-36.0) g/dL RDW (12.0-15.0) % Plt Count (130-450) 10^3/uL MPV (7.4-11.4) fL Neut # (Auto) Lymph # (Auto) Ellis # (Auto) Eos # (Auto) Baso # (Auto) Absolute Nucleated RBC Total Counted Band Neuts % (Manual) (0 - 10) % Reactive Lymphs % (Man) % Abnorm Lymph % (Manual) % Metamyelocytes % ( - 0) % Myelocytes % ( - 0) % Nucleated RBC % Neutrophils # (Manual) (1.5-6.6) 10^3/uL Lymphocytes # (Manual) (1.5-3.5) 10^3/uL Monocytes # (Manual) (0.0-1.0) 10^3/uL Eosinophils # (Manual) (0-0.7) 10^3/uL Basophils # (Manual) (0-0.1) 10^3/uL Nucleated RBCs % Differential Comment WBC Morphology (NORMAL) Platelet Estimate (NORMAL) RBC Morph Micro Appear (NORMAL) PT (9.9-12.6) secs INR (0.8-1.2) Sodium (135-145) mmol/L Potassium (3.5-4.5) mmol/L Chloride (101-111) mmol/L Carbon Dioxide (21-32) mmol/L Anion Gap (6-13) BUN (6-20) mg/dL Creatinine (0.6-1.3) mg/dL Estimated GFR (MDRD) (>89) Glucose (74-104) mg/dL Lactic Acid 2.8 H (0.5-2.2) mmol/L Calcium (8.5-10.3) mg/dL Total Bilirubin (0.2-1.0) mg/dL AST (10-42) IU/L ALT (10-60) IU/L Alkaline Phosphatase (42-121) IU/L Lactate Dehydrogenase (140-271) IU/L Troponin I High Sens (2.3-19.7) ng/L B-Natriuretic Peptide 100 (5-100) pg/mL Total Protein (6.4-8.9) g/dL Albumin (3.2-5.5) g/dL Globulin (2.1-4.2) g/dL Albumin/Globulin Ratio (1.0-2.2) Lipase (11-82) U/L Nasal Adenovirus (PCR) Nasal B. parapertussis DNA (PCR) Nasal Coronavir 229E PCR Nasal Coronavir HKU1 PCR Nasal Coronavir NL63 PCR Nasal Coronavir OC43 PCR Nasal Enterovir/Rhinovir PCR Nasal Influenza B PCR Nasal Influenza A PCR Nasal Parainfluen 1 PCR Nasal Parainfluen 2 PCR Nasal Parainfluen 3 PCR Nasal Parainfluen 4 PCR Nasal RSV (PCR) Nasal B.pertussis DNA PCR Nasal C.pneumoniae (PCR) [place] Human Metapneumo PCR Nasal M.pneumoniae (PCR) Nasal SARS-CoV-2 (PCR) Anti-Streptolysin O Ab <20.0 (0.0-200.0) IU/mL 08/31/23 08/31/23 08/31/23 Range/Units 09:58 09:58 09:58 WBC (4.8-10.8) x10^3/uL RBC (4.70-6.10) 10^6/uL Hgb (14.0-18.0) g/dL Hct (42.0-52.0) % MCV (80.0-94.0) fL MCH (27.0-31.0) pg MCHC (32.0-36.0) g/dL RDW (12.0-15.0) % Plt Count (130-450) 10^3/uL MPV (7.4-11.4) fL Neut # (Auto) Lymph # (Auto) Ellis # (Auto) Eos # (Auto) Baso # (Auto) Absolute Nucleated RBC Total Counted Band Neuts % (Manual) (0 - 10) % Reactive Lymphs % (Man) % Abnorm Lymph % (Manual) % Metamyelocytes % ( - 0) % Myelocytes % ( - 0) % Nucleated RBC % Neutrophils # (Manual) (1.5-6.6) 10^3/uL Lymphocytes # (Manual) (1.5-3.5) 10^3/uL Monocytes # (Manual) (0.0-1.0) 10^3/uL Eosinophils # (Manual) (0-0.7) 10^3/uL Basophils # (Manual) (0-0.1) 10^3/uL Nucleated RBCs % Differential Comment WBC Morphology (NORMAL) Platelet Estimate (NORMAL) RBC Morph Micro Appear (NORMAL) PT 13.4 H (9.9-12.6) secs INR 1.2 (0.8-1.2) Sodium 138 (135-145) mmol/L Potassium 3.6 (3.5-4.5) mmol/L Chloride 102 (101-111) mmol/L Carbon Dioxide 24 (21-32) mmol/L Anion Gap 12.0 (6-13) BUN 28 H (6-20) mg/dL Creatinine 0.7 (0.6-1.3) mg/dL Estimated GFR (MDRD) 111 (>89) Glucose 169 H (74-104) mg/dL Lactic Acid (0.5-2.2) mmol/L Calcium 8.4 L (8.5-10.3) mg/dL Total Bilirubin 0.8 (0.2-1.0) mg/dL AST 37 (10-42) IU/L ALT 68 H (10-60) IU/L Alkaline Phosphatase 106 (42-121) IU/L Lactate Dehydrogenase (140-271) IU/L Troponin I High Sens 28.7 H* (2.3-19.7) ng/L B-Natriuretic Peptide (5-100) pg/mL Total Protein 6.0 L (6.4-8.9) g/dL Albumin 3.0 L (3.2-5.5) g/dL Globulin 3.0 (2.1-4.2) g/dL Albumin/Globulin Ratio 1.0 (1.0-2.2) Lipase 53 (11-82) U/L Nasal Adenovirus (PCR) Nasal B. parapertussis DNA (PCR) Nasal Coronavir 229E PCR Nasal Coronavir HKU1 PCR Nasal Coronavir NL63 PCR Nasal Coronavir OC43 PCR Nasal Enterovir/Rhinovir PCR Nasal Influenza B PCR Nasal Influenza A PCR Nasal Parainfluen 1 PCR Nasal Parainfluen 2 PCR Nasal Parainfluen 3 PCR Nasal Parainfluen 4 PCR Nasal RSV (PCR) Nasal B.pertussis DNA PCR Nasal C.pneumoniae (PCR) [place] Human Metapneumo PCR Nasal M.pneumoniae (PCR) Nasal SARS-CoV-2 (PCR) Anti-Streptolysin O Ab (0.0-200.0) IU/mL 08/31/23 08/31/23 Range/Units 09:58 09:01 WBC 2.5 L (4.8-10.8) x10^3/uL RBC 4.15 L (4.70-6.10) 10^6/uL Hgb 12.9 L (14.0-18.0) g/dL Hct 36.7 L (42.0-52.0) % MCV 88.4 (80.0-94.0) fL MCH 31.1 H (27.0-31.0) pg MCHC 35.1 (32.0-36.0) g/dL RDW 17.9 H (12.0-15.0) % Plt Count 43 L (130-450) 10^3/uL MPV 8.9 (7.4-11.4) fL Neut # (Auto) Not Reportable Lymph # (Auto) Not Reportable Ellis # (Auto) Not Reportable Eos # (Auto) Not Reportable Baso # (Auto) Not Reportable Absolute Nucleated RBC Not Reportable Total Counted 100 Band Neuts % (Manual) 27 H (0 - 10) % Reactive Lymphs % (Man) 7 % Abnorm Lymph % (Manual) 0 % Metamyelocytes % 3 H ( - 0) % Myelocytes % 3 H ( - 0) % Nucleated RBC % Not Reportable Neutrophils # (Manual) 1.8 (1.5-6.6) 10^3/uL Lymphocytes # (Manual) 0.5 L (1.5-3.5) 10^3/uL Monocytes # (Manual) 0.1 (0.0-1.0) 10^3/uL Eosinophils # (Manual) 0.0 (0-0.7) 10^3/uL Basophils # (Manual) 0.0 (0-0.1) 10^3/uL Nucleated RBCs 4 % Differential Comment MANUAL DIFFERENTIAL WBC Morphology 2+ DOHLE BODIES (NORMAL) Platelet Estimate (NORMAL) RBC Morph Micro Appear 1+ ANISOCYTOSIS (NORMAL) PT (9.9-12.6) secs INR (0.8-1.2) Sodium (135-145) mmol/L Potassium (3.5-4.5) mmol/L Chloride (101-111) mmol/L Carbon Dioxide (21-32) mmol/L Anion Gap (6-13) BUN (6-20) mg/dL Creatinine (0.6-1.3) mg/dL Estimated GFR (MDRD) (>89) Glucose (74-104) mg/dL Lactic Acid (0.5-2.2) mmol/L Calcium (8.5-10.3) mg/dL Total Bilirubin (0.2-1.0) mg/dL AST (10-42) IU/L ALT (10-60) IU/L Alkaline Phosphatase (42-121) IU/L Lactate Dehydrogenase 379 H (140-271) IU/L Troponin I High Sens (2.3-19.7) ng/L B-Natriuretic Peptide (5-100) pg/mL Total Protein (6.4-8.9) g/dL Albumin (3.2-5.5) g/dL Globulin (2.1-4.2) g/dL Albumin/Globulin Ratio (1.0-2.2) Lipase (11-82) U/L Nasal Adenovirus (PCR) Nasal B. parapertussis DNA (PCR) Nasal Coronavir 229E PCR Nasal Coronavir HKU1 PCR Nasal Coronavir NL63 PCR Nasal Coronavir OC43 PCR Nasal Enterovir/Rhinovir PCR Nasal Influenza B PCR Nasal Influenza A PCR Nasal Parainfluen 1 PCR Nasal Parainfluen 2 PCR Nasal Parainfluen 3 PCR Nasal Parainfluen 4 PCR Nasal RSV (PCR) Nasal B.pertussis DNA PCR Nasal C.pneumoniae (PCR) [place] Human Metapneumo PCR Nasal M.pneumoniae (PCR) Nasal SARS-CoV-2 (PCR) Anti-Streptolysin O Ab (0.0-200.0) IU/mL Sepsis Event Note (H) - Evaluation Current Stage of Sepsis: Ruled out Assessment/Plan - Problem List (1) Pneumonia Impression: Pt came in to the ED from preop when he was about to get a port put in for chemo for his Glioblastoma treatment when he had abnormal vitals consistent of tachycardia and hypoxic. On 08/31 he got an X-ray which came back with no acute findings, see report for full details. He got a CT of the chest which shows no PE, but a right upper lobe nodular consolidation measuring 1.7 x 1.1 cm containing punctate fuci of air. Differential includes infection/abscess versus malignancy, centrilobular nodules in the right upper lobe suggestive of bronchiolitis of infectious or inflammatory etiology. See CT report for full review. Due to the patients current diagnosis of a Glioblastoma he is taking Avastin and Temozolomide and going through chemoradiation causeing him to be immunocompromized. As such this finding on the CT could be a verity of different Pneumonias, one of which could be Pneumocystis jirovecii pneumonia (PCP) due to him taking Temozolomide making him more susceptible to it. An infectious disease doctor was consulted on what kind of work up should happen to more specifically direct treatment. On 09/01 the patient received another X-ray which has the impression of a developing consolidation in the left upper lung zone, new from prior. Findings consistent with developing infection, see full report for more information. So far his PCR test have come back negative along with his Group A strep. Awaiting further test. He was on 5 L of oxygen via oxymask last night and this morning, however he has been switched over to 2 L via nasal cannula. Pt has an elevated LDH of 379, which can be attributed to PCP, therefore because of him taking Temozolomide and the increased LDH going to start him on Bactrim DS to cover it and stop the Vancomycin. Plan: Wait for lab work to return so as to better direct antibiotic treatment Continue Azithromycin 500 mg Continue Cefepime 1 gm Stop Vancomycin HCl 500 mg Start Bactrim DS 800 mg/160 mg Pt will be recieving a lot of fluid via IV from all of the medications he will be recieving. Need to closely monitor his I & O, any signs of edema, lab work and increase in work of breathing. (2) Glioblastoma Impression: Pt was diagnosed with Glioblastoma January of 2023, he has had surgical resection for it, and is currently taking Avastin and Temozolomide along with chemoradiation. Pt states that his current oncologist is Dr. Bhavesh Holm, his doctor will be contacted and informed about Mr. Carrero current hospitalization. Plan: Continue to monitor patient and make sure he is comfortable. (3) Pancytopenia Impression: Pt had blood work come back on 08/31 with WBC count of 2.5, RBC count of 4.15 and Platelet count of 43. Today 09/01 his WBC is 1.5, RBC 3.22 and Platelet count of 37. This is due to the treatment he is receiving for his Glioblastoma. Plan: Monitor patient.
--- NOTE | 2023-09-01 10:31 | XRAY Report ---
PROCEDURE: Chest 1 View X-Ray INDICATIONS: pna w worse 02 need, tachy TECHNIQUE: One view of the chest was acquired. COMPARISON: CT 08/31/2023 FINDINGS: Surgical changes and devices: None. Lungs and pleura: Right upper lobe nodule not clearly identified. Developing consolidation in the le ft upper lung zone. Mediastinum: Mediastinal contours appear normal. Heart size is normal. Bones and chest wall: No suspicious bony lesions. Overlying soft tissues appear unremarkable. IMPRESSION: Developing consolidation in the left upper lung zone, new from prior. Findings consistent with develo ping infection. Reviewed by: Sarabjit Barajas on 09/01/2023 10:29 AM PDT Approved by: Sarabjit Barajas on 09/01/2023 10:29 AM PDT Station ID: [id number]
[2023-09-01] MEDS ORDERED: CALCIUM GLUC 1,000MG/50ML-NACL 1,000 MG/50 ML BAG IV ONE (10:58)
[2023-09-01 12:01] LABS: RAPID STREP SCREEN Negative (Negative)
[2023-09-01] MEDS: POTASSIUM CHLORIDE 20 MEQ/15 ML UDC PO SCH ×2 (12:14→16:59)
[2023-09-01] MEDS ORDERED: SMX/TMP 800MG/160MG 10ML 20 ML in DEXTROSE 5% 500 ML IV SCH (14:00)
[2023-09-01] MEDS: MULTIVITAMIN W/MINERALS TABLET PO SCH (17:01)
[2023-09-01] MEDS: SMX/TMP 800MG/160MG 10ML 20 ML in DEXTROSE 5% 500 ML IV SCH (21:39)
[2023-09-02 05:03] LABS: BASOPHILS % (AUTO) 0.9 %; HCT - HEMATOCRIT 26.5 % (42.0-52.0); HGB - HEMOGLOBIN 9.3 g/dL (14.0-18.0); LYMPHOCYTES # (AUTO) 0.2 10^3/uL (1.5-3.5); LYMPHOCYTES % (AUTO) 8.3 %; MEAN CORPUSCULAR HEMOGLOBIN 31.4 pg (27.0-31.0); MEAN CORPUSCULAR HGB CONC 35.1 g/dL (32.0-36.0); MEAN CORPUSCULAR VOLUME 89.5 fL (80.0-94.0); MEAN PLATELET VOLUME 9.1 fL (7.4-11.4); MONOCYTES # (AUTO) 0.1 10^3/uL (0.0-1.0); MONOCYTES % (AUTO) 3.7 %; NEUTROPHILS # (AUTO) 1.8 10^3/uL (1.5-6.6); NEUTROPHILS % (AUTO) 81.6 %; PLT - PLATELET COUNT 44 10^3/uL (130-450); RED BLOOD COUNT 2.96 10^6/uL (4.70-6.10); RED CELL DISTRIBUTION WIDTH 17.5 % (12.0-15.0); WHITE BLOOD COUNT 2.2 x10^3/uL (4.8-10.8)
[2023-09-02 05:07] LABS: SLIDE REVIEW? Indicated
[2023-09-02 05:15] LABS: CALCIUM 8.3 mg/dL (8.5-10.3); CREATININE 0.5 mg/dL (0.6-1.3); POTASSIUM 3.9 mmol/L (3.5-4.5)
[2023-09-02 05:24] LABS: PLATELET ESTIMATE, MANUAL DECREASED (<130,000) (NORMAL); PLATELET MORPHOLOGY NORMAL APPEARANCE (NORMAL); RBC MORPHOLOGY (MULTIPLE) NORMAL APPEARANCE (NORMAL); WBC MORPHOLOGY (MULTIPLE) NORMAL APPEARANCE (NORMAL)
[2023-09-02] MEDS: CEFEPIME 1 GM in SODIUM CHLORIDE 0.9% MINIBAG 100 ML IV SCH ×3 (05:33→20:17)
[2023-09-02] MEDS: SMX/TMP 800MG/160MG 10ML 20 ML in DEXTROSE 5% 500 ML IV SCH ×3 (06:24→21:10)
[2023-09-02] MEDS: MULTIVITAMIN W/MINERALS TABLET PO SCH (08:21)
[2023-09-02] MEDS: dexAMETHasone 4 MG TABLET PO SCH ×2 (08:22→17:15)
[2023-09-02] MEDS: POTASSIUM CHLORIDE 20 MEQ/15 ML UDC PO SCH (08:24)
[2023-09-02] MEDS: SODIUM CHLORIDE FLUSH 0.9% 10 ML SYRINGE IVP SCH ×2 (08:25→17:19)
[2023-09-02] MEDS: ESCITALOPRAM 10 MG TABLET PO SCH (08:29)
[2023-09-02] MEDS: AZITHROMYCIN INJ 500 MG in SODIUM CHLORIDE 0.9% 250 ML IV SCH (08:37)
--- NOTE | 2023-09-02 09:13 | PROVIDER PROGRESS NOTE ---
Subjective - Prog Note Date Prog Note Date: 09/02/23 Prog Note Time: 09:11 - Subjective Pt reports feeling: Improved Subjective: I let him know that his chest x-ray showed worsening pneumonia. But he says that he does not feel badly. He knows that he is weak and tired, more than usual but he does not feel ill. He felt ill 2 days ago but he does not feel it today. He is up to 3 L nasal cannula and is saturating at 90 to 92% with this. No fevers, chills, rigors. No sore throat, no chest pain, no pleuritic chest pain. He is sitting up to eat breakfast but he prefers to lay flat. He says that sitting up makes him feel worse. As in the fatigue is worse. But no abdominal pain, no diarrhea. Current Medications - Current Medications Current Medications: Active Medications Acetaminophen (Acetaminophen 325 Mg Tablet) 650 mg PO Q4HR PRN PRN Reason: Pain 1 to 4, or Fever Dexamethasone (Dexamethasone 4 Mg Tablet) 4 mg PO BIDWM [facility] Last Admin: 09/02/23 08:22 Dose: 4 mg Escitalopram Oxalate (Escitalopram 10 Mg Tablet) 10 mg PO DAILY [facility] Last Admin: 09/02/23 08:29 Dose: 10 mg Azithromycin 500 mg/ Sodium (Chloride) 250 mls @ 250 mls/hr IV DAILY [facility] Stop: 09/02/23 09:59 Last Admin: 09/02/23 08:37 Dose: 250 mls/hr Trimethoprim/Sulfamethoxazole (20 ml/ Dextrose) 520 mls @ 346.667 mls/hr IV TID [facility] Last Infusion: 09/02/23 08:33 Dose: Infused Cefepime HCl 1 gm/ Sodium (Chloride) 100 mls @ 200 mls/hr IV Q8H [facility] Last Infusion: 09/02/23 06:24 Dose: Infused Multivitamins/Minerals (Multivitamin W/Minerals Tablet) 1 tab PO DAILYWM [facility] Last Admin: 09/02/23 08:21 Dose: 1 tab Ondansetron HCl (Ondansetron Odt 4 Mg Tablet) 4 mg TL Q6HR PRN PRN Reason: Nausea / Vomiting Ondansetron HCl (Ondansetron 4 Mg/2 Ml Vial) 4 mg IVP Q6HR PRN PRN Reason: Nausea / Vomiting Oxycodone HCl (Oxycodone 5 Mg Tablet) 5 mg PO Q4HR PRN PRN Reason: Pain 5 to 7 Sodium Chloride (Sodium Chloride Flush 0.9% 10 Ml Syringe) 10 ml IVP PRN PRN PRN Reason: NEEDED PER PROVIDER ORDERS Sodium Chloride (Sodium Chloride Flush 0.9% 10 Ml Syringe) 10 ml IVP 0100,0900,1700 [facility] Last Admin: 09/02/23 08:25 Dose: 10 ml Ondansetron HCl 4 mg PO Q4HR PRN 04/10/23 Temozolomide 360 mg PO DAILY 08/07/23 Atorvastatin Calcium [Lipitor] 80 mg PO DAILY 08/28/23 Escitalopram [Lexapro] 10 mg PO DAILY 08/28/23 dexAMETHasone [Decadron] 4 mg PO BIDWM 08/28/23 Objective - Vital Signs/Intake & Output Reviewed Vital Signs: Yes Vital Signs: Vital Signs x48h Temp Pulse Resp BP Pulse Ox O2 Flow Rate 09/02/23 07:55 3 09/02/23 07:51 36.5 C 74 18 106/64 90 L 3 Intake & Output: Intake & Output 08/30/23 08/31/23 09/01/23 09/02/23 23:59 23:59 23:59 23:59 Intake Total 3278.333 4636.667 620 Output Total 275 1551 Balance 3003.333 3085.667 620 - Objective General Appearance: positive: Alert (Fatigued appearing white male with circles under his eyes. It is an effort to feed himself breakfast as I sit with him for a while. But does not appear in any acute distress) Eyes Bilateral: positive: PERRL, EOMI ENT: positive: No signs of dehydration. negative: Purulent nasal drainage, Pharyngeal erythema Neck: positive: No JVD. negative: Lymphadenopathy (R), Lymphadenopathy (L), Stiff neck Respiratory: positive: No respiratory distress. negative: Wheezes, Rales, Rhonchi Cardiovascular: positive: Regular rate & rhythm Abdomen: positive: Non-tender, No organomegaly, Nml bowel sounds, No distention Skin: positive: Warm, Dry, Pallor Extremities: positive: Full ROM, No pedal edema Neurologic/Psychiatric: positive: Oriented x3, CN's nml (2-12), Motor nml (Except for generalized weakness. It is an effort for him to sit up and then try and stand transfer.) - Lab Results Fish Bones: 09/02/23 04:24 09/02/23 04:24 Other Labs: Lab Results x24hrs 09/02/23 09/02/23 09/01/23 Range/Units 04:24 04:24 11:48 WBC 2.2 L (4.8-10.8) x10^3/uL RBC 2.96 L (4.70-6.10) 10^6/uL Hgb 9.3 L (14.0-18.0) g/dL Hct 26.5 L (42.0-52.0) % MCV 89.5 (80.0-94.0) fL MCH 31.4 H (27.0-31.0) pg MCHC 35.1 (32.0-36.0) g/dL RDW 17.5 H (12.0-15.0) % Plt Count 44 L (130-450) 10^3/uL MPV 9.1 (7.4-11.4) fL Neut # (Auto) 1.8 (1.5-6.6) 10^3/uL Lymph # (Auto) 0.2 L (1.5-3.5) 10^3/uL Banks # (Auto) 0.1 (0.0-1.0) 10^3/uL Eos # (Auto) 0.0 (0.0-0.7) 10^3/uL Baso # (Auto) 0.0 (0.0-0.1) 10^3/uL Absolute Nucleated RBC 0.00 x10^3/uL Nucleated RBC % 0.0 /100WBC Manual Slide Review Indicated WBC Morphology NORMAL APPEARANCE (NORMAL) Platelet Estimate DECREASED (<130,000) (NORMAL) Platelet Morphology NORMAL APPEARANCE (NORMAL) RBC Morph Micro Appear NORMAL APPEARANCE (NORMAL) Sodium 136 (135-145) mmol/L Potassium 3.9 (3.5-4.5) mmol/L Chloride 105 (101-111) mmol/L Carbon Dioxide 21 (21-32) mmol/L Anion Gap 10.0 (6-13) BUN 11 (6-20) mg/dL Creatinine 0.5 L (0.6-1.3) mg/dL Estimated GFR (MDRD) 163 (>89) Glucose 231 H (74-104) mg/dL Calcium 8.3 L (8.5-10.3) mg/dL Group A Strep Rapid Negative (Negative) ABX Reporting Has patient been on IV antibiotics over the past 48 hours?: Yes Sepsis Event Note (H) - Evaluation Current Stage of Sepsis: Ruled out Assessment/Plan - Problem List (1) CAP (community acquired pneumonia) Impression: Patient is currently on Avastin and . He has been on the latter since his first diagnosis in January of this year. Avastin was added August 04. He was being seen in preop to get a port when he was found to be tachycardic and hypoxic. Sent to the ER and ER found a negative chest x-ray. But because of the hypoxia a CT angiogram was done and the CT of the chest shows right upper lobe nodular consolidations that are small with punctate foci of air. My differential consist of early abscess versus malignancy versus bronchiolitis versus PCP. Temozolomide is associated with PCP. LDH is high. When I first started treatment I gave him cefepime and vancomycin. With the progression of the pneumonia on chest x-ray yesterday, I added Bactrim. Although the follow-up chest x-ray the day after admission (09/01) chest x-ray looks worse, the patient is stable. His only complaint is weakness. Vancomycin was discontinued yesterday. Blood cultures are negative. He is not bringing up any phlegm that would allow me to do a sputum culture. Plan: Today is day 3 of azithromycin and I will stop after this dose.. Continue cefepime, day #3/7 Bactrim double strength 3 times daily day #2/7 Encourage ambulation. Bactrim we will give him a liter and a half of fluids, cefepime will give him about half a liter. I will continue to monitor for fluid overload. I am aiming for discharge when he is no longer hypoxic. (2) Glioblastoma Impression: Pt was diagnosed with Glioblastoma January of 2023, he has had surgical resection for it, and is currently taking Avastin and Temozolomide along with chemoradiation. I was able to speak to his current oncologist , Dr. Bhavesh Holm, Yesterday. We reviewed the case. Antibiotic regimen and he does not have anything to offer. Feels that nothing needs to be changed. He did state that he feels the patient should be discussing care goals. I let him know that we do already done a single advance care planning conversation with the patient is now DNR.The oncologist did mention that the patient is supposed to be on antibiotic prophylaxis. He was not specific about what drug and in looking at the notes from the medical ambulatory clinic, there are no prophylactic antibiotics listed. Plan: Fill out POLST today Sit down and discuss With the patient what he is thinking with regards to his care goals for the future (3) Pancytopenia Impression: Laboratory Tests 08/31/23 09/01/23 09/02/23 09:58 05:10 04:24 WBC 2.5 L 1.5 L* 2.2 L Hgb 12.9 L 10.0 L 9.3 L Plt Count 43 L 37 L 44 L Band Neuts % (Manual) 27 H 2 Neutrophils # (Manual) 1.8 0.9 L WBC Morphology NORMAL APPEARANCE I have stopped the Lovenox for DVT prophylaxis. Most likely this is due to chemo. I will ask the lab to give me a manual count for his ANC today.
[2023-09-03] MEDS: SODIUM CHLORIDE FLUSH 0.9% 10 ML SYRINGE IVP SCH ×3 (00:12→17:14)
[2023-09-03] MEDS: CEFEPIME 1 GM in SODIUM CHLORIDE 0.9% MINIBAG 100 ML IV SCH ×3 (05:12→20:56)
[2023-09-03 05:22] LABS: HCT - HEMATOCRIT 23.3 % (42.0-52.0); HGB - HEMOGLOBIN 7.9 g/dL (14.0-18.0); LYMPHOCYTES % (AUTO) 12.6 %; MEAN CORPUSCULAR HEMOGLOBIN 30.6 pg (27.0-31.0); MEAN CORPUSCULAR HGB CONC 33.9 g/dL (32.0-36.0); MEAN CORPUSCULAR VOLUME 90.3 fL (80.0-94.0); MEAN PLATELET VOLUME 9.9 fL (7.4-11.4); MONOCYTES % (AUTO) 4.2 %; NEUTROPHILS % (AUTO) 79.1 %; PLT - PLATELET COUNT 36 10^3/uL (130-450); RED BLOOD COUNT 2.58 10^6/uL (4.70-6.10); RED CELL DISTRIBUTION WIDTH 17.5 % (12.0-15.0)
[2023-09-03] MEDS ORDERED: DEXTROSE 5% 500 ML IV ONE (05:33)
[2023-09-03 05:34] LABS: WHITE BLOOD COUNT 1.9 x10^3/uL (4.8-10.8)
[2023-09-03 05:35] LABS: ABNORMAL LYMPHS % (MANUAL) 0 %
[2023-09-03 05:45] LABS: CALCIUM 7.9 mg/dL (8.5-10.3); CREATININE 0.6 mg/dL (0.6-1.3); POTASSIUM 4.3 mmol/L (3.5-4.5)
[2023-09-03] MEDS: SMX/TMP 800MG/160MG 10ML 20 ML in DEXTROSE 5% 500 ML IV SCH ×3 (05:47→21:51)
[2023-09-03 05:55] LABS: BAND NEUTROPHILS % (MANUAL) 9 %; LYMPHOCYTES # (MANUAL) 0.2 10^3/uL (1.5-3.5); LYMPHOCYTES % (MANUAL) 12 %; NEUTROPHILS # (MANUAL) 1.6 10^3/uL (1.5-6.6)
[2023-09-03 05:56] LABS: DIFFERENTIAL COMMENT MANUAL DIFFERENTIAL; PLATELET ESTIMATE, MANUAL DECREASED (<130,000) (NORMAL); PLATELET MORPHOLOGY 1+ LARGE PLATELETS (NORMAL); RBC MORPHOLOGY (MULTIPLE) NORMAL APPEARANCE (NORMAL); WBC MORPHOLOGY (MULTIPLE) NORMAL APPEARANCE (NORMAL)
[2023-09-03] MEDS: MULTIVITAMIN W/MINERALS TABLET PO SCH (10:07)
[2023-09-03] MEDS: ESCITALOPRAM 10 MG TABLET PO SCH (10:07)
[2023-09-03] MEDS: dexAMETHasone 4 MG TABLET PO SCH ×2 (10:08→17:14)
[2023-09-04] MEDS: SODIUM CHLORIDE FLUSH 0.9% 10 ML SYRINGE IVP SCH ×2 (00:10→08:29)
[2023-09-04] MEDS: CEFEPIME 1 GM in SODIUM CHLORIDE 0.9% MINIBAG 100 ML IV SCH ×2 (05:05→13:28)
[2023-09-04] MEDS: SMX/TMP 800MG/160MG 10ML 20 ML in DEXTROSE 5% 500 ML IV SCH ×2 (05:59→14:48)
--- NOTE | 2023-09-04 07:36 | PROVIDER PROGRESS NOTE ---
Progress Note September 03, 2023 1 PM The patient, patient's , and his daughter are at the bedside today. I have updated them on his condition. I have already seen him this morning and he is weak, tired, but no chest pain, cough, shortness of breath. He remains afebrile. He is pancytopenic and I explained what that meant and why he is pancytopenic. He has been weaned down from 4 L nasal cannula to 4 L nasal cannula. I took this opportunity to share with his that her and I had a conversation about advance care planning. He wished to be a DO NOT RESUSCITATE and we filled out a POLST form. I made a copy for our EMR, and she took the original home with her. He says that he has had a very good life. Feels a lot of love and laughter. He looks at his and daughter when he says this. He is not afraid of dying. He wants to move forward with treatment for his glioblastoma and ask what I think of clinical trials. In mind, he still wants to plan for the future and inevitable . He asked if I could please provide someone to talk to him about what hospice would be. And I asked for a hospice informational visit to be done. He was very appreciative of that. Active Medications Acetaminophen (Acetaminophen 325 Mg Tablet) 650 mg PO Q4HR PRN PRN Reason: Pain 1 to 4, or Fever Dexamethasone (Dexamethasone 4 Mg Tablet) 4 mg PO BIDWM [facility] Last Admin: 09/03/23 17:14 Dose: 4 mg Escitalopram Oxalate (Escitalopram 10 Mg Tablet) 10 mg PO DAILY [facility] Last Admin: 09/03/23 10:07 Dose: 10 mg Trimethoprim/Sulfamethoxazole (20 ml/ Dextrose) 520 mls @ 346.667 mls/hr IV TID [facility] Last Admin: 09/04/23 05:59 Dose: 346 mls/hr Cefepime HCl 1 gm/ Sodium (Chloride) 100 mls @ 200 mls/hr IV Q8H [facility] Last Infusion: 09/04/23 05:35 Dose: Infused Multivitamins/Minerals (Multivitamin W/Minerals Tablet) 1 tab PO DAILYWM [facility] Last Admin: 09/03/23 10:07 Dose: 1 tab Ondansetron HCl (Ondansetron Odt 4 Mg Tablet) 4 mg TL Q6HR PRN PRN Reason: Nausea / Vomiting Ondansetron HCl (Ondansetron 4 Mg/2 Ml Vial) 4 mg IVP Q6HR PRN PRN Reason: Nausea / Vomiting Oxycodone HCl (Oxycodone 5 Mg Tablet) 5 mg PO Q4HR PRN PRN Reason: Pain 5 to 7 Sodium Chloride (Sodium Chloride Flush 0.9% 10 Ml Syringe) 10 ml IVP PRN PRN PRN Reason: NEEDED PER PROVIDER ORDERS Sodium Chloride (Sodium Chloride Flush 0.9% 10 Ml Syringe) 10 ml IVP 0100,0900,1700 [facility] Last Admin: 09/04/23 00:10 Dose: 10 ml Ondansetron HCl 4 mg PO Q4HR PRN 04/10/23 Temozolomide 360 mg PO DAILY 08/07/23 Atorvastatin Calcium [Lipitor] 80 mg PO DAILY 08/28/23 Escitalopram [Lexapro] 10 mg PO DAILY 08/28/23 dexAMETHasone [Decadron] 4 mg PO BIDWM 08/28/23 Temperature 36.3, heart rate 59, blood pressure 121/66, respirations 20. 92% saturated on 4 L. At 1:00 he was down to 2 L and saturating at 96. That is not recorded by nursing. This was a verbal report. Pale fatigued gentleman, alert, oriented to person place and time. Supple neck without adenopathy Clear lungs. No labored respiration no tachypnea. Regular rate and rhythm Abdomen is soft, nontender with normal bowel sounds Extremities without edema Lab: Sodium 133. Potassium and the rest of his BMP normal. However glucose is up to 203, calcium 7.9 Pancytopenia with a white cell count of 1.9, hemoglobin 7.9, hematocrit 23.3. Platelets low at 36. His hemoglobin has been drifting down from admission 12.9. No evidence of GI bleeding. Assessment/Plan - Problem List (1) CAP (community acquired pneumonia) Impression: Patient is currently on Avastin and Temozolomide. He has been on the latter since his first diagnosis in January of this year. Avastin was added August 04. He was being seen in preop to get a port when he was found to be tachycardic and hypoxic. Sent to the ER and ER found a negative chest x-ray. But because of the hypoxia a CT angiogram was done and the CT of the chest shows right upper lobe nodular consolidations that are small with punctate foci of air. My differential consist of early abscess versus malignancy versus bronchiolitis versus PCP. Temozolomide is associated with PCP. LDH is high. When I first started treatment I gave him cefepime and vancomycin. With the progression of the pneumonia on chest x-ray yesterday, I added Bactrim. Although the follow-up chest x-ray the day after admission (09/01) chest x-ray looks worse, the patient is stable. His only complaint is weakness. Vancomycin was discontinued yesterday. Blood cultures are negative. He is not bringing up any phlegm that would allow me to do a sputum culture. He completed 3 days of azithromycin on September 02. On cefepime day #02/24. Bactrim double strength 3 times a day, day #3. Plan: Aim for discharge when he is no longer hypoxic. Again I am encouraging him to ambulate. He is very weak. (2) Glioblastoma Impression: Pt was diagnosed with Glioblastoma January of 2023, he has had surgical resection for it, and is currently taking Avastin and Temozolomide along with chemoradiation. I was able to speak to his current oncologist , Dr. Bhavesh Holm, 09/02. We reviewed the case. Antibiotic regimen and he does not have anything to offer. Feels that nothing needs to be changed. He did state that he feels the patient should be discussing care goals. .The oncologist did mention that the patient is supposed to be on antibiotic prophylaxis. He was not specific about what drug and in looking at the notes from the medical ambulatory clinic, there are no prophylactic antibiotics listed. Plan: Filled out POL today Hospice info visit provided. (3) Pancytopenia Impression: Laboratory Tests 08/31/23 09/01/23 09/02/23 09:58 05:10 04:24 WBC 2.5 L 1.5 L* 2.2 L Hgb 12.9 L 10.0 L 9.3 L Plt Count 43 L 37 L 44 L Band Neuts % (Manual) 27 H 2 Neutrophils # (Manual) 1.8 0.9 L WBC Morphology NORMAL APPEARANCE Laboratory Tests 09/03/23 04:35 WBC 1.9 L* Hgb 7.9 L MPV 9.9 I have stopped the Lovenox for DVT prophylaxis. Most likely this is due to chemo. I will ask the lab to give me a manual count for his ANC today.
[2023-09-04] MEDS: MULTIVITAMIN W/MINERALS TABLET PO SCH (08:29)
[2023-09-04] MEDS: dexAMETHasone 4 MG TABLET PO SCH (08:29)
[2023-09-04] MEDS: ESCITALOPRAM 10 MG TABLET PO SCH (08:29)
[2023-09-04 08:35] VITALS: BP 135/88
[2023-09-04 13:31] VITALS: O2SAT 97
--- NOTE | 2023-09-04 14:18 | Discharge Plan ---
Discharge Plan Problem Reviewed?: Yes Disposition: Home, Self Care Condition: Poor Prescriptions: Sulfamethox/Trimeth 800/160 [Bactrim Ds] 1 tablet PO BID 7 Days #14 tablet Cefdinir 300 mg PO BID 6 Days #20 cap Diet: Regular Activity Restrictions: Activity as Tolerated Shower Restrictions: No Driving Restrictions: Yes (no driving) Assistance Devices: [facility] Concerns: You were diagnosed with glioblastoma in January 2023. You have undergone resection, chemoradiation and in spite of that had progression of the tumor in March 2023. You have been started on Avastin and were getting ready to get a port. You are also on temozolomide. As you were being evaluated for the port, in the presurgical area, you were with a fast heart rate, low oxygen, and low blood pressure. They sent you to the emergency room and we found you to have a right upper lobe pneumonia. You are still on oxygen. You want to go home. You do not want to stay here any longer and you would rather go home to finish your antibiotics on oxygen. I do wish you would stay but I understand your desire to leave. Plan of Treatment: 1. Please finish antibiotics with Bactrim double strength twice a day for the next 7 days. 2. Finish cefdinir 300 mg twice a day for 3 more days. 3. Please see your cancer doctor in the next week or so 4. While you were here we were able to establish some advance care planning. You are a DO NOT RESUSCITATE and you filled out a POLST form and have taken at home. You have also met with hospice nurse for information visit only. You are still seeking active treatment and when you are ready to stop treatment, you have an idea of what to expect from hospice. 5. You still need oxygen for few more days. Before you left we tested you to see how much oxygen you need. The patient again denies any positive review of systems. You will need 1 to 3 L. 1 L when you are at rest. 3 L when you are walking around. Make sure you follow-up with your doctor for this because they will decide when you no longer need oxygen. Care Goals: Your quality of life indicator is the ability to play golf. You said that when you can no longer play golf or be alert enough to watch golf play, you most likely will stop treatment Assessment: Patient is alert, oriented to person place and time and situation. No Smoking: If you smoke, Please STOP! Call for help. Follow-up with: Chrystal Baez MD [Physician No Access] -
--- NOTE | 2023-09-04 16:14 | DISCHARGE SUMMARY ---
Discharge Summary Admit Date: 08/31/23 Discharge Date: 09/04/23 Discharging Provider: Cecelia Joe MD Primary Care Provider: Chrystal Holm Code Status: Do Not Attempt Resuscitation Condition at Discharge: Poor Discharge Disposition: 01 Home, Self Care - DIAGNOSES Discharge Diagnoses with Status of Each Condition: 1. Pneumonia 2. Acute respiratory failure with hypoxia 3. Metastatic glioblastoma multiforme 4. Pancytopenia due to chemotherapy - HPI History of Present Illness: Patient is a 73-year-old male with a history of glioblastoma that he was diagnosed with in January 2023 presenting for evaluation of abnormal vital signs noticed when he arrived to the preop area today for a port. He was noted to be tachycardic and hypoxic. Patient states that he has been feeling generalized weakness for the past 1 week. Denies fever, chest pain, shortness of air, cough off, vomit or diarrhea. He is currently on oral chemotherapy medications for treatment of his cancer and his oncologist is Dr. Bhavesh Holm. He has been on tezolamide since January of this year. And Avastin was to be added August 04. - Past Medical History Cardiovascular: reports: High cholesterol Respiratory: reports: None Neuro: reports: None Endocrine/Autoimmune: reports: None GI: reports: None SHORT GOODS DRIER: reports: None : reports: None HEENT: reports: None Psych: reports: None Musculoskeletal: reports: None Derm: reports: None Other Past Medical History: Pt has a Glioblastoma that he was diagnosed with in January of 2023. When asked about any other past medical history he states that he "can not remember anything" - Past Surgical History General: reports: Hiatal hernia repair Neuro: reports: Craniotomy - CONSULTS | PROCEDURES Procedures: Chest x-ray without acute cardiopulmonary process. Chest/thorax CT angiogram without filling defect of PE. He has right upper lobe nodular consolidation with a punctate foci of air, centrilobular nodules in the right upper lobe, subcentimeter calcified granuloma in the right middle lobe, moderate apical predominant centrilobular paraseptal edema. The differential does include infection versus abscess versus malignancy. He has a lesion in the left liver lobe that may be metastatic disease. Blood cultures without growth Group A strep throat culture negative Antistreptolysin antibody less than 20 Rapid group A strep negative Fungitell greater than 500 pg/mL. - HOSPITAL COURSE Hospital Course: Due to the patients current diagnosis of a Glioblastoma he is taking Avastin and Temozolomide and going through chemoradiation causeing him to be immunocompromized. As such this finding on the CT could be a verity of different Pneumonias, one of which could be Pneumocystis jirovecii pneumonia (PCP) due to him taking Temozolomide making him more susceptible to it. An infectious disease doctor was consulted on what kind of work up should happen to more specifically direct treatment. The goal for this patient is to find out what pneumonia he has so That his antibiotics can be directed at a narrowed down because of infection. I did speak to his oncologist. His oncologist felt that he had nothing to offer and endorsed my therapy as it was. He was treated with cefepime for broad-spectrum antibiotic coverage in an immunocompromised patient on chemotherapy. Because of the high LDH that I ordered on admission, I also added Bactrim. He completed 3 days of azithromycin. Blood cultures were negative. Fungitell came back quite high. Antistreptolysin was negative. While he improved with orientation, appetite, he remained quite tired. Very fatigued. And hypoxic. Repeat chest x-ray on the second day showed progression of the pneumonia and that is why I added the Bactrim. Advance care planning was discussed. He wants to be a DO NOT RESU SCITATE and filled out a POLST form. And information visit for hospice was also provided. At discharge, the patient was still hypoxic on room air. I asked him if he wanted to stay until he was no longer hypoxic. Initially he said he wanted to stay but then changed his mind and said he just wanted to go home. His shares with me that he thinks that he may be dying sooner rather than later and would rather not be in the hospital. But she made it very clear that he still wants to seek treatment. He even thinks he might want to fly to the [facility] for a trial. They were seen by hospice for an information visit[place], and would be hospice. They would prefer would be hospice when the time comes. She says she will keep their information and call them when it is time. He was sent home on antibiotics including cefdinir and Bactrim. He is Fungitell serum level was high at greater than 500. To me that means he may have a fungal infection in the face of his immunocompromise status. I told him that I may nee d to send him to get work-up and he said he did not want to do that. Did not want to be transferred did not want to get a work-up right now. As such I told him he really needs to follow-up with his primary care provider to see what could be done in the outpatient setting including a bronchoscopy with lavage. I shared that piece of information with his as well. He was not hypoxic at rest on room air. He was 94%. With exertion on room air his O2 sats were 87%. He required 3 L nasal cannula to improve his O2 sats to 92%. As such I am ordering home O2, 1 to 3 L/min with exertion to treat his acute hypoxic respiratory failure and pneumonia. Discharge exam had a temperature 35.8. Heart rate of 94. Blood pressure 135/88. Respirations 16. He has 1 L on to saturate at 97%. He is 5 foot 10 inches tall, 68.5 kg. He is a pale, fatigued appearing elderly gentleman.His main complaint is the fatigue. And a chronic daily dull headache that is increasing in severity. He is sitting up at the edge of the bed. He got up and got himself dressed. Neck is shotty adenopathy. Lungs have diminished breath sounds with shallow unlabored respiration. There is no egophony in the right upper lobe. No crackles, no rhonchi no wheezing. He has a regular rate and rhythm. The abdomen is soft and nontender. Extremities have no edema. Greater than 30 minutes was spent coordinating discharge This document was made in part using voice recognition software. While efforts are made to proofread this document, sound alike and grammatical errors may occur. - ALLERGIES Allergies/Adverse Reactions: Allergies Allergy/AdvReac Type Severity Reaction Status Date / Time No Known Drug Allergies Allergy Verified 08/31/23 09:37 - MEDICATIONS Home Medications: Ambulatory Orders Medication Instructions Recorded Confirmed Ondansetron HCl 4 mg PO Q4HR PRN 04/10/23 08/31/23 Temozolomide 360 mg PO DAILY 08/07/23 08/31/23 Atorvastatin Calcium [Lipitor] 80 mg PO DAILY 08/28/23 08/31/23 Escitalopram [Lexapro] 10 mg PO DAILY 08/28/23 08/31/23 dexAMETHasone [Decadron] 4 mg PO BIDWM 08/28/23 08/31/23 Cefdinir 300 mg PO BID 6 Days #20 cap 09/04/23 Sulfamethox/Trimeth 800/160 1 tablet PO BID 7 Days #14 tablet 09/04/23 [Bactrim Ds] - LABS Result Diagrams: 09/03/23 04:35 09/03/23 04:35 - SEPSIS Current Stage of Sepsis: Ruled out
== END 2023-09-04 17:00 | disposition home or self-care (01) | DRG 193 ==
LOC: ED 09:22 → MS2 12:52
PROVIDERS: ADMIT Specialist; ATTEND Specialist
DX: J18.9 Pneumonia, unspecified organism (principal); D61.810 Antineoplastic chemotherapy induced pancytopenia; J96.01 Acute respiratory failure with hypoxia; C71.9 Malignant neoplasm of brain, unspecified; D84.821 Immunodeficiency due to drugs; D84.822 Immunodeficiency due to external causes; C78.7 Secondary malignant neoplasm of liver and intrahepatic bile duct; R53.1 Weakness; T45.1X5A Adverse effect of antineoplastic and immunosuppressive drugs, initial encounter; Z66 Do not resuscitate; Z53.09 Procedure and treatment not carried out because of other contraindication; R00.0 Tachycardia, unspecified; R74.02 Elevation of levels of lactic acid dehydrogenase [LDH]; Z87.891 Personal history of nicotine dependence; R51.9 Headache, unspecified; I10 Essential (primary) hypertension; E78.5 Hyperlipidemia, unspecified
CPT/HCPCS: 36415; 71045; 71275; 80048; 80053; 83605; 83615; 83690; 83880; 84484; 85025; 85610; 86060; 87040; 87070; 87430; 87449; 87633; 93005; 94761; 96360; 96361; 99285; A9270; J1650; J3370; J3490; J7120; J8540; Q9967; 81599; 87205

== ENCOUNTER 2023-09-06 12:27 | Outpatient (CLI) | payer OTHER | END 2023-09-06 23:59 | disposition critical access hospital (66) | LOC: EMS 12:27 | DX: R53.1 Weakness (principal); R63.0 Anorexia; Z74.09 Other reduced mobility; R06.02 Shortness of breath | CPT/HCPCS: A0425; A0429 ==

== ENCOUNTER 2023-09-06 12:55 | Emergency (ER) | payer OTHER ==
--- NOTE | 2023-09-06 13:12 | ED Physician Documentation ---
History of Present Illness - Stated complaint Stated Complaint: GENERAL WEAKNESS - Chief complaint Chief Complaint: General - History obtained from History obtained from: Patient, EMS - Additonal information Additional information: 73-year-old gentleman with history of glioblastoma, he was admitted by my partner, Dr. Blackwell 6 days ago. He had been sent over from the OR preop. Noted to be hypoxic. He was there for port placement. For the glioblastoma he had been on tezolamide since January of this year and Avastin was added about a month ago. During his admission he was identified to have a pneumonia in the right upper lobe, there is also concern for abscess versus malignancy. Because of the concern for PCP pneumonia Bactrim was added and there was also a quite high Fungitell level but the patient declined transfer for confirmatory work-up for possible invasive fungal disease. He was seen by hospice while in the hospital but has not yet enrolled, they are waiting "for the time to come." He comes in by ambulance today with a chief complaint for me of "I am ready to go." He has not yet enrolled in hospice but he was seen by hospice during his hospitalization. He states he is short of breath but declines any medications for this. He is in no pain. He wants to enroll in hospice. Reportedly this is probably a little more complicated because he has a special needs daughter at home. 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 : None HEENT: None Psych: None Musculoskeletal: None Derm: None - Past Surgical History Past Surgical History: Yes General: Hiatal hernia repair Neuro: Craniotomy - Present Medications Home Medications: Ambulatory Orders Medication Instructions Recorded Confirmed Ondansetron HCl 4 mg PO Q4HR PRN 04/10/23 08/31/23 Temozolomide 360 mg PO DAILY 08/07/23 08/31/23 Atorvastatin Calcium [Lipitor] 80 mg PO DAILY 08/28/23 08/31/23 Escitalopram [Lexapro] 10 mg PO DAILY 08/28/23 08/31/23 dexAMETHasone [Decadron] 4 mg PO BIDWM 08/28/23 08/31/23 Cefdinir 300 mg PO BID 6 Days #20 cap 09/04/23 Sulfamethox/Trimeth 800/160 1 tablet PO BID 7 Days #14 tablet 09/04/23 [Bactrim Ds] - Allergies Allergies/Adverse Reactions: Allergies Allergy/AdvReac Type Severity Reaction Status Date / Time No Known Drug Allergies Allergy Verified 08/31/23 09:37 - Social History Does the pt smoke?: No Smoking Status: Former smoker Does the pt drink ETOH?: No Does the pt have substance abuse?: No - Immunizations Immunizations are current?: Yes - POLST Patient has POLST: Yes POLST Status: DNR PD ED PE NORMAL - Vitals Vital signs reviewed: Yes - General General: Alert and oriented X 3, No acute distress - Neuro Neuro: Alert and oriented X 3, Normal speech Results - Vitals Vitals: Vital Signs - 24 hr 09/06/23 09/06/23 09/06/23 13:07 13:12 13:25 Temperature 36.5 C Heart Rate 110 H 113 H Respiratory 18 18 20 Rate Blood Pressure 127/77 129/87 H O2 Saturation 90 L Oxygen O2 Source Room air PD Medical Decision Making - ED course ED course: 73-year-old gentleman presents from home wanting to enroll in hospice. I called the hospice medical grade shoemaker, Dr. Sargent after my initial evaluation and she will stand when other staff members over. Seen by the hospice nurse and they will enroll him today and get everything he needs at home. Departure - Departure Disposition: 01 Home, Self Care Clinical Impression: Encounter for hospice care, Glioblastoma, Pneumonia, Acute hypoxic respiratory failure Condition: Stable Record reviewed to determine appropriate education?: Yes Instructions: Hospice Nears Comments: The hospice nurse should be coming out today at 4 PM to get you enrolled. They will take care of everything you need going forward. Forms: PCP List
[2023-09-06 13:13] VITALS: O2SAT 90
[2023-09-06 14:13] VITALS: BP 129/87
== END 2023-09-06 15:06 | disposition home or self-care (01) ==
LOC: EDUNIT# → ED 12:55
DX: J18.9 Pneumonia, unspecified organism (principal); J96.01 Acute respiratory failure with hypoxia; C71.9 Malignant neoplasm of brain, unspecified; Z51.5 Encounter for palliative care; E78.00 Pure hypercholesterolemia, unspecified; Z87.891 Personal history of nicotine dependence; Z79.899 Other long term (current) drug therapy
CPT/HCPCS: 99283

== ENCOUNTER 2023-09-06 14:53 | Outpatient (CLI) | payer OTHER | END 2023-09-06 14:54 | disposition home or self-care (01) | LOC: EMS 14:53 | PROVIDERS: ATTEND Emergency Medicine | DX: Z51.5 Encounter for palliative care (principal); R53.1 Weakness; C71.9 Malignant neoplasm of brain, unspecified | CPT/HCPCS: A0425; A0428 ==

== ENCOUNTER 2023-10-03 15:55 | Outpatient (CLI) | payer OTHER | END 2023-10-03 15:56 | disposition critical access hospital (66) | LOC: EMS 15:55 | DX: R56.9 Unspecified convulsions (principal) | CPT/HCPCS: A0425; A0429 ==

== ENCOUNTER 2023-10-03 16:09 | Emergency (ER) | payer OTHER ==
[2023-10-03] MEDS ORDERED: LORazepam 2 MG/ML VIAL IM STA (16:55)
[2023-10-03] MEDS ORDERED: levETIRAcetam 250 MG TABLET PO STA (16:56)
[2023-10-03 17:19] LABS: BASOPHILS % (AUTO) 0.6 %; HCT - HEMATOCRIT 33.9 % (42.0-52.0); LYMPHOCYTES % (AUTO) 23.2 %; MEAN CORPUSCULAR HEMOGLOBIN 33.5 pg (27.0-31.0); MEAN CORPUSCULAR HGB CONC 32.4 g/dL (32.0-36.0); MEAN CORPUSCULAR VOLUME 103.4 fL (80.0-94.0); MEAN PLATELET VOLUME 9.3 fL (7.4-11.4); MONOCYTES % (AUTO) 5.8 %; NEUTROPHILS % (AUTO) 63.2 %; PLT - PLATELET COUNT 237 10^3/uL (130-450); RED BLOOD COUNT 3.28 10^6/uL (4.70-6.10); WHITE BLOOD COUNT 24.6 x10^3/uL (4.8-10.8)
--- NOTE | 2023-10-03 17:20 | CT Report ---
PROCEDURE: HEAD WO INDICATIONS: new onset sz, brain tumor TECHNIQUE: Noncontrast 4.5 mm thick angled axial sections acquired from the foramen magnum to the vertex. For r adiation dose reduction, the following was used: automated exposure control, adjustment of mA and/or kV according to patient size. COMPARISON: None. FINDINGS: Image quality: Excellent. CSF spaces: Basal cisterns are patent. No extra-axial fluid collections. Ventricles are normal in size and shape. Brain: No midline shift. There is an ill-defined area in the left temporal lobe of hypodensity helen uring roughly 4.6 x 2.7 x 2.9 cm. There is loss of the overlying calvert-white matter differentiation an d slight effacement of sulci. No intrinsic hemorrhage. Mild periventricular hypodensity suggesting ch ronic microvascular ischemic changes. Skull and face: Left temporal bone craniotomy change. Calvarium and visualized facial bones are inta ct, without suspicious lesions. Sinuses: Visualized sinuses and mastoids are clear. IMPRESSION: 1. Ill-defined hypodensity with slight mass effect in the left temporal lobe corresponds to patient h istory of tumor. There is overlying craniotomy change. Underlying ischemia cannot be excluded. 2. No evidence of hemorrhage or uncal herniation. Reviewed by: Jo Ann Rosas MD on 10/03/2023 5:18 PM PST Approved by: Jo Ann Rosas MD on 10/03/2023 5:18 PM PST Station ID: [id number]
[2023-10-03 17:21] LABS: SLIDE REVIEW? Indicated
[2023-10-03] MEDS ORDERED: SODIUM CHLORIDE 0.9% 1,000 ML IV STA (17:21)
[2023-10-03 17:22] LABS: ABNORMAL LYMPHS % (MANUAL) 0 %
[2023-10-03 17:50] LABS: BAND NEUTROPHILS % (MANUAL) 5 %; LYMPHOCYTES # (MANUAL) 6.4 10^3/uL (1.5-3.5); LYMPHOCYTES % (MANUAL) 26 %; METAMYELOCYTES % (MANUAL) 6 %; MONOCYTES # (MANUAL) 0.7 10^3/uL (0.0-1.0); MYELOCYTES % (MANUAL) 1 %; NEUTROPHILS # (MANUAL) 15.7 10^3/uL (1.5-6.6); NUCLEATED RBC (MANUAL) 3 %
[2023-10-03 17:53] LABS: DIFFERENTIAL COMMENT MANUAL DIFFERENTIAL; PLATELET ESTIMATE, MANUAL NORMAL (130-450,000) (NORMAL); PLATELET MORPHOLOGY NORMAL APPEARANCE (NORMAL)
[2023-10-03 18:21] LABS: ALBUMIN 3.6 g/dL (3.2-5.5)
[2023-10-03 18:23] LABS: ALBUMIN/GLOBULIN RATIO 1.8 (1.0-2.2); BILIRUBIN,TOTAL 0.5 mg/dL (0.2-1.0); CALCIUM 7.8 mg/dL (8.5-10.3); CREATININE 0.7 mg/dL (0.6-1.3); POTASSIUM 3.6 mmol/L (3.5-4.5); TOTAL PROTEIN 5.6 g/dL (6.4-8.9)
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
[2023-10-03 20:30] VITALS: BP 128/76; O2SAT 100
== END 2023-10-03 20:29 | disposition home or self-care (01) ==
LOC: ED 16:09
DX: R56.9 Unspecified convulsions (principal); V49.40XA Driver injured in collision with unspecified motor vehicles in traffic accident, initial encounter; C34.90 Malignant neoplasm of unspecified part of unspecified bronchus or lung; C79.31 Secondary malignant neoplasm of brain
CPT/HCPCS: 36415; 70450; 80053; 83690; 85025; 96372; 99283; 99284; J2060

== ENCOUNTER 2023-10-03 20:27 | Outpatient (CLI) | payer OTHER | END 2023-10-03 20:28 | disposition home or self-care (01) | LOC: EMS 20:27 | PROVIDERS: ATTEND Emergency Medicine | DX: R56.9 Unspecified convulsions (principal); R41.0 Disorientation, unspecified; D49.6 Neoplasm of unspecified behavior of brain | CPT/HCPCS: A0425; A0428 ==

== ENCOUNTER 2023-10-29 22:33 | Outpatient (CLI) | payer OTHER | END 2023-10-29 23:59 | disposition EMS.NT | LOC: EMS 22:33 | DX: Z03.89 Encounter for observation for other suspected diseases and conditions ruled out (principal) ==

== ENCOUNTER 2023-10-31 07:45 | Outpatient (CLI) | payer OTHER | END 2023-10-31 07:46 | disposition EMS.NT | LOC: EMS 07:45 | DX: Z03.89 Encounter for observation for other suspected diseases and conditions ruled out (principal) ==